=== PATIENT | female | born 1985 | race Caucasian/White ===

== ENCOUNTER 2017-10-13 05:47 | Inpatient (IN) ==
--- OUTSIDE RECORDS SUMMARY | 2017-10-13 05:43 | External Medical Summary | Continuity of Care Document ---
:1985 Author Organization [facility] Address [address] [place], [place] [id number] Phone Care Team Providers Name Role Phone Jessica Birch MD Unavailable Unavailable Allergies, Adverse Reactions, Alerts Substance Reaction Severity Status sulfamoxole Hives Unknown Active Medications Medication Instructions Dosage Effective Dates Status Comments (start - stop) Rhophylac 1,500 unit - Active (300 mcg)/2 mL injection syringe OneTouch Ultra Test insert 1 by Not Available - Active of choice strips Misc.(Non-Drug; Combo Route) route once fasting and postprandial blood-glucose meter check by Not Available - Active of choice kit Misc.(Non-Drug; Combo Route) route once test blood sugar QID, fasting and 2 hours after each meal levothyroxine 50 mcg take 1 tablet by 50 MCG - Active tablet oral route every day Flonase 50 spray 1 spray by - Active mcg/actuation nasal intranasal route spray,suspension every day in each nostril as needed fexofenadine 180 mg take 1 tablet by 180 MG - Active tablet oral route every day ORAL - Active TABLET Problems Condition Effective Dates (start - stop) Clinical Status Gestational diabetes mellitus in - , diet controlled Previous Low Transverse - 34 weeks gestation of - Hypothyroidism, unspecified 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) - (routine) w/o abn findings Pap Smear Screening, Cervix Encounter for initial prescription of contraceptive pills Personal history of gestational diabetes Personal history of gestational diabetes Endo, nutritional and metab diseases - comp preg, unsp tri Encntr screen for infections w sexl - mode of transmiss Encounter for screening for oth - infec/parastc diseases Encounter for suprvsn of normal - , first trimester Encounter for screening of - mother 9 weeks gestation of - Gestational diabetes mellitus in - , diet controlled 30 weeks gestation of - Previous Low Transverse - Endo, nutritional and metab diseases - comp preg, third tri 28 weeks gestation of - Previous Low Transverse - Encounter For Screening For - Streptococcus B 36 weeks gestation of - Endo, nutritional and metab diseases - comp preg, second tri Encounter For Screening For - Malformations 20 weeks gestation of - Endo, nutritional and metab diseases - comp preg, second tri Encounter for suprvsn of normal - , second trimester 17 weeks gestation of - Encounter for suprvsn of normal - , second trimester 14 weeks gestation of - Encounter for suprvsn of normal - , second trimester 24 weeks gestation of - Encounter for suprvsn of normal - , second trimester 20 weeks gestation of - Encounter for suprvsn of normal - , third trimester 32 weeks gestation of - Active Procedures Procedure Date OB Visit No Charge - 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 700 Provider: Health PA, C-SectionEncounte 8 Medical Katherine PO Box r For Center [facility], 700 1522, Screening For Leoncio Elizabeth, Streptococcus B36 120, Center Dr LYNCH, weeks gestation Astudillo, [facility] 120, [id number], of SYED Astudillo, [id number] SYED, tel: , [place]. [id number]. tel: tel:+ [phone] Lakshmi Astudillo Gestational Jason-1 Andres Referring In Womens diabetes mellitus 0-201 Lesly. Provider: John BRITO, in , 8 700 Katherine PO Box diet [facility], 700 1522, controlledPreviou [facility] Aries, s Low Transverse , [facility] Dr LYNCH, [id number] weeks 120, Leoncio 120, , gestation of Baudilio Astudillo, [place] SYED, SYED, tel:[phone]. , [place]. tel: tel: [phone] Lakshmi Astudillo Encounter for Dec-2 Mannie Referring In Womens suprvsn of normal 7-201 [place]. 700 Provider: John BRITO, , third 7 Medical Katherine PO Box [id number] weeks Center [facility], 700 1522, gestation of Leoncio Elizabeth, 120, Center Baudilio Deleon, [facility] 120, , SYED Baudilio, [id number] SYED, tel: , [place]. [id number]. tel: tel:+ [phone] Lakshmi Astudillo Gestational Dec-1 Mannie Referring In Womens diabetes mellitus 5-201 [place]. 700 Provider: John BRITO, in , 7 Medical Katherine PO Box diet [id number] [facility], 700 1522, weeks gestation Leoncio Elizabeth, of 120, Center Baudilio Deleon, [facility] 120, [id number], SYED Astudillo, [id number] SYED, tel: , [place]. [id number]. tel: tel:+ [phone] Lakshmi Astudillo Dec-0 Mannie In Womens 8-201 [place]. 700 Health PA, 7 Medical PO Box Center 1522, Leoncio Elizabeth, 120, Baudilio L[place]CH, [id number], [place], [place] [id number] tel: , [place]. tel: [phone] Lakshmi Astudillo Dec-0 Mannie In Womens 4-201 [place]. 700 Health DARYL, 7 Medical PO Box Center 1522, Leoncio Elizabeth, 120, SYED, [place], [id number], [place], [place] [id number] tel: , [place]. tel: [phone] Lakshmi Astudillo Previous Low Dec-0 Mannie Referring In Womens Transverse 1-201 [place]. 700 Provider: Health DARYL, C-SectionEndo, 7 Medical Katherine PO Box nutritional and Center [facility], [facility] 1522, metab diseases , Leoncio Chris, comp preg, third 120, Center Dr LYNCH, tri28 weeks Baudilio, [facility] 120, , gestation of Baudilio LYNCH, SYED, tel: , [place]. [id number] tel: tel: [phone] Lakshmi Astudillo Encounter for Nov-0 Mannie Referring In Womens suprvsn of normal 3-201 [place]. 700 Provider: John BRITO, , second 7 Medical Katherine PO Box [email or web address] weeks [facility], [facility] 1522, gestation of Leoncio Elizabeth, 120, Center Baudilio Deleon, [facility] 120, , Baudilio LYNCH, [place] [id number] SYED, tel: , [place]. [id number] tel: tel: [phone] Lakshmi Astudillo Encounter for Oct-0 Mannie Referring In Womens suprvsn of normal 4-201 [place]. 700 Provider: John BRITO, , second 7 Medical Katherine PO Box [id number] weeks [facility], [facility] 1522, gestation of Leoncio Elizabeth, 120, Center Baudilio Deleon, [facility] 120, , Baudilio L[place]CH, [place] [id number] SYED, tel: , [place]. [id number] tel: tel:[phone] Associates B[facility] Stout, nutritional Oct-0 Mannie Referring In Womens Ultrasound and metab 4-201 [place]. 700 Provider: Health PA, diseases comp 7 Medical Katherine PO Box preg, second Center [facility], 700 1522, triEncounter For Leoncio Elizabeth, 120, Center Dr LYNCH, Screening For Astudillo, Leoncio 120, [id number], [id number] Baudilio LYNCH, weeks gestation [id number] SYED, tel: of , [place]. [id number] tel: tel:[phone] [facility] Stout nutritional Sep-1 Mannie Referring In Womens and metab 4201 [place]. 700 Provider: Health DARYL, diseases comp 7 Medical Katherine PO Box preg, second [facility], 700 1522, triEncounter for Leoncio Elizabeth, suprvsn of normal 120, Center Dr LYNCH, , second Astudillo Leoncio 120, [id number], [id number] weeks Baudilio LYNCH, gestation of [id number] SYED, tel: , [place]. [id number]. tel: tel:[phone] Associates [facility] Encounter for Aug-2 Mannie Referring In Womens suprvsn of normal 4-201 [place]. 700 Provider: Health DARYL, , second 7 Medical Katherine PO Box [email or web address] weeks [facility], 700 1522, gestation of Leoncio Elizabeth, 120, Center Dr LYNCH, Baudilio, Leoncio 120, [id number], Baudilio [place], [place] [id number] [place], tel: , [place]. [id number] tel: tel:[phone] [facility] Stout, nutritional Ja-2 Mannie Referring In Womens and metab 7-201 [place]. 700 Provider: Health DARYL, diseases comp 7 Medical Katherine PO Box preg, unsp [facility], 700 1522, triEncntr screen Leoncio Elizabeth, for infections w 120, Center Dr LYNCH, sexl mode of Baudilio, Leoncio 120, [id number], transmissEncounte Baudilio LYNCH, r for screening [id number] [place], tel:2 for oth , [place]. [id number]. infec/parastc tel: tel:[phone] diseasesEncounter [phone] for suprvsn of normal , first trimesterEncounte r for screening of mother9 weeks gestation of [facility] Hypothyroidism, [place] Referring In Womens unspecifiedEncntr 3-201 [place]. Provider: Health DARYL, for medical assistant ob gyn exam 6 700 Katherine PO Box (general) Medical [place], 700 1522, (routine) w/o abn [place] Joel Chris, findingsPap Smear , [facility] Dr LYNCH, Screening, 120, Leoncio 120, , CervixEncounter Baudilio Astudillo, for initial [place], tel: prescription of [phone]. contraceptive , [place]. tel:[phone] pillsPersonal tel: [phone] history of [id number] gestational diabetesPersonal history of gestational diabetes [facility] Alexi Referring In Womens 3-201 [place]. Provider: John BRITO, 4 700 Dominique PO Box Medical [place] 1522, Center S, [address] Dr Aries, [facility] [place], 120, [place] [id number], [facility], [place] Baudilio LYN[place], tel:+ [phone] SYED, , [place]. [id number]. tel: tel:[phone] Lakshmi Astudillo Alexi Referring In Womens 3-201 Dominique. Provider: Health DARYL, 4 700 Dominique PO Box Medical [place] 1522, Center S, [address] Dr Aries, [facility] [place], 120, [place] [id number], [facility], [place] Baudilio LYNCH, tel:[phone] SYED, , [place]. [id number]. tel: tel:[phone] Lakshmi Astudillo [place] In Womens 8-200 Cynthia. Health DARYL, 8 700 PO Box Medical 1522, [place] Dr Aries, [facility], 120, [id number], [facility] [place], tel:[phone] , [place]. tel: [phone] Family History Family Member Diagnosis Age At Onset No family history of Colon Cancer No family history of Osteoporosis No family history of Ovarian Cancer No family history of Thyroid Disorder Paternal Grandmother Cancer, breast 82 No family history of Hypertension No family history of Cardiovascular Disease Maternal Grandmother Cancer, breast 75 No family history of Stroke Paternal Grandfather Diabetes mellitus Immunizations Vaccine Date Status Comments Tdap completed Source: New Immunization Record Rhophylac completed Source: New Immunization Record Influenza, injectable, completed Source: New Immunization Record quadrivalent, preservative free, 3 yrs or older Rhophylac completed Source: New Immunization Record Influenza, injectable, completed Source: New Immunization Record quadrivalent, preservative free, 3 yrs or older Payers Payer name Insurance type Covered republican ID Authorization(s) [facility] [id number] [facility] [id number] [facility] [id number] [facility] [id number] Social History Type Description Quantity Date Captured Alcohol Use Details No Caffeine Use Details Unknown Tobacco Use Status Unknown Smoking Status Never smoker Vital Signs Date / Height Weight BMI Pulse Blood Temperature Respiratory Body Head BMI Time: Rate Pressure Rate Surface Circumference percentile Area 135.80 35.3 123/ lbs 1 mm[Hg] 8:18 kg/m AM eter (2) Chief Complaint And Reason For Visit Unknown Chief Complaint And Reason For Visit Reason For Referral Reason For Referral Unknown Plan Of Care Date Type Action Status Appointment Eloy Kimball BOOKED Appointment Eloy Kimball - [facility] [place] Future Order: Lab Order Pap Smear With HPV Reflex If ASCUS Ordered ([id number]) Future Order: Radiology Order Complete OB Ultrasound > 14 Ordered Weeks ([id number]) Date Type Problem Goal Intervention Status Start Date Unknown. History Of Present Illness Encounter Date Complaint History Of Present Illness This patient has no known history of present illness Functional Status Encounter Date Functional Assessment Cognitive Assessment Unknown Medications Administered Medication Instructions Dosage Effective Dates (start - stop) Status Comments Drug Treatment Unknown Instructions Date Instruction Additional Information HIV and other routine tests risk factors identified by history anticipated course of care nutrition and weight gain counseling, special diet toxoplasmosis precautions (cats / raw meat) sexual activity exercise indications for ultrasound influenza vaccine environmental / work hazards travel use of any medications (including supplements, vitamins, herbs, OTC drugs) domestic violence seat belt use childbirth classes / hospital facilities hospital registration genetic testing Zika virus assessment & precautions
--- OUTSIDE RECORDS SUMMARY | 2017-10-13 05:43 | External Medical Summary | Continuity of Care Document ---
:1985 Author Organization [facility] Address [address] [place], [place] [id number] Phone Care Team Providers Name Role Phone Jessica Birch MD Unavailable Unavailable Allergies, Adverse Reactions, Alerts Substance Reaction Severity Status sulfamoxole Hives Unknown Active Medications Medication Instructions Dosage Effective Dates Status Comments (start - stop) levothyroxine 50 mcg take 1 tablet by 50 MCG - Active tablet oral route every day Flonase 50 spray 1 spray by Not Available - Active mcg/actuation nasal intranasal route spray,suspension every day in each nostril as needed fexofenadine 180 mg take 1 tablet by 180 MG - Active tablet oral route every day ORAL - Active TABLET Problems Condition Effective Dates (start - stop) Clinical Status Encounter for suprvsn of normal - , second trimester 20 weeks gestation of - Hypothyroidism, unspecified 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) w/o abn findings [...] - mother 9 weeks gestation of - Endo, nutritional and metab diseases - comp preg, second tri Encounter For Screening For - Malformations 20 weeks gestation of - Endo, nutritional and metab diseases - comp preg, second tri Encounter for suprvsn of normal - , second trimester 17 weeks gestation of - Encounter for suprvsn of normal - , second trimester 14 weeks gestation of - Active Procedures Procedure Date OB Visit No Charge Results Test Name Date and Time Measure Units Reference Range Abnormal Flag Comments Unknown Advance Directives Directive Yes / No Effective Date File Name Unknown Encounters Encounter Practice Location Reason(s) Diagnoses Date Provider Care Team Description For Visit Members Lakshmi Astudillo Encounter for Mannie Referring In Womens suprvsn of normal -201 [place]. 700 Provider: John BRITO, , second 7 Medical Katherine PO Box [id number] weeks [facility], 700 1522, gestation of Leoncio Elizabeth, 120, [place] Deleon, [facility] 120, , Baudilio LYNCH, [id number] SYED, tel: , [place]. [id number]. tel: tel: [phone] [facility] Stout, nutritional May-0 Mannie Referring In Womens Ultrasound and metab 4-201 [place]. 700 Provider: John BRITO diseases comp 7 Medical Katherine PO Box preg, second [place], 700 1522, triEncounter For Leoncio Elizabeth, [facility], [place] Dr LYNCH, Screening For Baudilio [facility] 120, , [id number] Baudilio LYNCH, weeks gestation [id number] SYED, tel: of , [place]. [id number]. tel: tel:[phone] [facility] Stout, nutritional May- Mannie Referring In Womens and metab 4-201 [place]. 700 Provider: John BRITO diseases comp 7 Medical Katherine PO Box preg, second [facility], 700 1522, triEncounter for Leoncio Elizabeth, [facility] of normal 120, [place] Dr LYNCH, , second Astudillo [facility] 120, [id number], [id number] weeks Baudilio LYNCH, gestation of [id number] SYED, tel: , [place]. [id number] tel: tel: [phone] [facility] Encounter for Mar-2 Mannie Referring In Womens suprvsn of normal 4-201 [place]. 700 Provider: Health PA, , second 7 Medical Katherine PO Box [id number] weeks Center [place], 700 1522, gestation of , [facility] Joel Chris, 120, Center Dr LYNCH, Baudilio, [facility] 120, , [place], [place], [place], tel: , [place]. [id number] tel: tel: [phone] [facility] Feb-2 Mannie In Womens 8-201 [place]. 700 Health PA, 7 Medical PO Box Center 1522, Leoncio Elizabeth, 120, Baudilio LYNCH, , [place], [place] tel: , [place]. tel: [phone] Lakshmi Astudillo Endo, nutritional Feb-2 Mannie Referring In Womens and metab 7-201 [place]. 700 Provider: Health DARYL, diseases comp 7 Medical Katherine PO Box preg, unsp [place], 700 1522, triEncntr screen , [facility] Aries, for infections w 120, Center Dr LYNCH, sexl mode of Astudillo, [facility] 120, , [facility] [place], tel: for oth , [place]. [id number] infec/parastc tel: tel:+[phone] diseasesEncounter [phone] for suprvsn of normal , first trimesterEncounte r for screening of mother9 weeks gestation of [facility] Hypothyroidism, [place] Referring In Womens unspecifiedEncntr 3-201 [place]. 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 contraceptive , [place]. tel: pillsPersonal tel: [phone] history of [id number] gestational diabetesPersonal history of gestational diabetes Associates Baudilio [facility] Referring In Womens 3-201 [place]. Provider: Health [place], 4 700 Dominique PO Box Medical [facility] 1522, [place] S, [address] Dr Aries, [facility] [place], 120, [place] [id number], Astudillo, [facility] 120, Baudilio LYNCH, tel: [phone] SYED , . [id number]. tel: tel: [phone] Lakshmi Astudillo [facility] Referring In Womens 3-201 [place]. Provider: Health [place], 4 700 Dominique PO Box Medical [facility] 1522, [facility], [facility] [address] Aries, [facility] [place], 120, [place] [id number], [facility] 120, Baudilio LYNCH, tel: [phone] SYED, , . [id number]. tel: tel: [phone] Lakshmi Astudillo Feb- East In Womens 8-200 Cynthia. Health [place], 8 700 Box Medical 1522, [place] [address] Aries, [facility] [place], 120, [id number], Astudillo, SYED, tel: [phone] , . tel: [phone] Family History Family Member Diagnosis Age At [...] Diabetes mellitus Immunizations Vaccine Date Status Comments Rhophyla completed Source: New Immunization Record Influenza, injectable, completed Source: New Immunization Record quadrivalent, preservative free, 3 yrs or older Payers Payer name Insurance type Covered republican ID Authorization(s) BCFAYE LYN[place] [id number] Social History Type Description Quantity Date Captured Alcohol Use Details No Caffeine Use Details Unknown Tobacco Use Status Unknown Smoking Status Never smoker Vital Signs Date / Height Weight BMI Pulse Blood Temperature Respiratory Body Head BMI Time: Rate Pressure Rate Surface Circumference percentile Area Unknown Chief Complaint And Reason For Visit Unknown Chief Complaint And Reason For Visit Reason For Referral Reason For Referral Unknown Plan Of Care Date Type Action Status Appointment Eloy Kimball BOOKED Future Order: Lab Order Pap Smear With HPV Reflex If ASCUS Ordered ([id number]) Future Order: Radiology Order Complete OB Ultrasound > 14 Ordered Weeks ([id number]) Date Type Problem Goal Intervention Status Start [...]
--- OUTSIDE RECORDS SUMMARY | 2017-10-13 05:43 | External Medical Summary | Continuity of Care Document ---
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 [...] - mother 9 weeks gestation of - Previous Low Transverse - Endo, nutritional and metab diseases - comp preg, third tri 28 weeks gestation of - Endo, nutritional and [...] gestation of - Active Procedures Procedure Date Injection Administration Rhophylac 100 Units OB Visit No Charge Results Test Name Date and Time Measure Units Reference Range Abnormal Flag Comments Unknown Advance Directives Directive Yes / No Effective Date File Name Unknown Encounters Encounter Practice Location Reason(s) Diagnoses Date Provider Care Team Description For Visit Members [facility] Encounter for Mannie Referring In Womens suprvsn of normal 7-201 [place]. 700 Provider: Health PA, , third 7 Medical Katherine [address] [id number] weeks [place], [facility] 1522, gestation of Leoncio Elizabeth [place], 120, Center Baudilio Deleon, [facility] 120, [id number], Baudilio LYNCH, [id number] SYED, tel:+2 , . [phone]. [id number] tel: tel: [phone] [facility] Gestational Dec-1 Mannie Referring In Womens diabetes mellitus 5-201 [place]. 700 Provider: Health DARYL, in , 7 Medical Katherine PO Box diet [id number] Center [facility], [facility] 1522, weeks gestation Leoncio Elizabeth, of 120, Center Dr LYNCH, Baud[place], [facility] 120, [id number], SYED, [place] [id number] [place], tel: , [place]. [id number]. tel: tel:[phone] [facility] Dec-0 Mannie In Womens 8-201 [place]. 700 John BRITO, 7 Medical PO Box Center 1522, Leoncio Elizabeth, 120, SYED, [place], [id number], [place], [place] [id number] tel:+ , [place]. tel: [phone] [facility] Dec-0 Mannie In Womens 4-201 [place]. 700 John BRITO, 7 Medical PO Box Center 1522, Leoncio Elizabeth, 120, SYED, [place], [id number], [place] [id number] tel: , [place]. tel: [phone] Lakshmi [place] Previous Low Dec-0 Mannie Referring In Womens Transverse 1-201 [place]. 700 Provider: John BRITO, C-SectionEndo, 7 Medical Katherine PO Box nutritional and Center [facility], 700 1522, metab diseases Leoncio Elizabeth, comp preg, third 120, Center Dr LYNCH, tri28 weeks [place], [facility] 120, [id number], gestation of Baud[place] LYNCH, [place] [id number] SYED, tel: , [place]. [id number]. tel: tel: [phone] Lakshmi [place] Encounter for Nov-0 Mannie Referring In Womens suprvsn of normal 3-201 [place]. 700 Provider: John BRITO, , second 7 Medical Katherine PO Box [id number] [facility] 1522, gestation of Leoncio Elizabeth, 120, Center Baudilio Deleon, [facility] 120, [id number], SYED, [place] [id number] [place], tel: , [place]. [id number]. tel: tel: [phone] Lakshmi [place] Encounter for Oct-0 Mannie Referring In Womens suprvsn of normal 4-201 [place]. 700 Provider: Health DARYL, , second 7 Medical Katherine PO Box [id number] weeks [place], 700 1522, gestation of Leoncio Elizabeth, 120, Center Dr LYNCH, [place], [facility] 120, , SYED, [place] [id number] [place], tel: , [place]. [id number]. tel: tel:[phone] [facility] Stout, nutritional Oct-0 Mannie Referring In Womens Ultrasound and metab 4-201 [place]. 700 Provider: John BRITO, diseases comp 7 Medical Katherine PO Box preg, second [place], 700 1522, triEncounter For Leoncio Elizabeth, 120, Center Dr LYNCH, Screening For Baudilio, [facility] 120, [id number], [id number] Baudilio LYNCH, weeks gestation SYED, tel: of , [place]. [id number]. tel: tel: [phone] [facility] Stout, nutritional Sep-1 Mannie Referring In Womens and metab 4-201 [place]. 700 Provider: John BRITO, diseases comp 7 Medical Katherine PO Box preg, second [place], 700 1522, triEncounter for Leoncio Elizabeth, suprvsn of normal 120, Center Dr LYNCH, , second [place]aud[place], [facility] 120, [id number], [email or web address] weeks Baudilio LYNCH, [place] gestation of [id number] SYED, tel: , [place]. [id number]. tel: tel:[phone] Lakshmi [place] Encounter for Aug-2 Mannie Referring In Womens suprvsn of normal 4-201 [place]. 700 Provider: John BRITO, , second 7 Medical Katherine PO Box [id number] [facility]22, gestation of Leoncio Elizabeth, 120, Center Dr LYNCH, B[place], Leoncio 120, , B[place] LYNCH, [place], tel: , [place]. [id number]. tel: tel:+ [phone] [facility] Endo, nutritional Feb- Mannie Referring In Womens and metab 7- [place]. 700 Provider: Health DARYL, diseases comp 7 Medical Katherine PO Box preg, unsp [place], 700 1522, triEncntr screen , [facility], for infections w 120, [place] Dr LYNCH, sexl mode of [place], Leoncio 120, , transmissEncounte Baudilio LYNCH, r for screening [place], tel: for oth , [place]. [id number]. infec/parastc tel: tel:+ diseasesEncounter [phone] for suprvsn of normal , first trimesterEncounte r for screening of mother9 weeks gestation of [facility] Hypothyroidism, [place] Referring In Womens unspecifiedEncntr -201 [place]. Provider: John BRITO, for painter supervisor exam 6 700 Katherine PO Box (general) [facility], 700 1522, (routine) w/o abn [facility] [place], findingsPap Smear , [facility] Dr LYNCH, Screening, 120, Leoncio 120, , CervixEncounter Baudilio [place], for initial SYED LYNCH, tel: prescription of [phone]. contraceptive , [place]. tel:+[phone] pillsPersonal tel: [phone] history of [id number] gestational diabetesPersonal history of gestational diabetes [facility] Alexi Referring In Womens 3-201 [place]. Provider: Health DARYL, 4 700 Dominique PO Box Medical Alexi 1522, Center S, [address] Dr Aries, [facility], 120, [place] [id number], [place], [facility] 120, [place] Baudilio LYNCH, tel:[phone] SYED, , [place]. [id number]. tel: tel:+ [phone] Lakshmi [place] May- [place] Referring In Womens 3-201 [place]. Provider: Health PA, 4 700 Dominique PO Box Medical [place] 1522, Center S, [address] Dr Aries, [facility], 120, [place] [id number], [facility], SYED, [place], tel: [phone] [place], , [place]. [id number]. tel: tel: [phone] Lakshmi [place] Feb- East In Womens 8-200 Cynthia. Health PA, 8 700 PO Box Medical 1522, Center Dr Aries, [facility] [place], 120, [id number], [place], [facility], tel: [phone] , [place]. tel: [phone] Family History Family Member Diagnosis Age At [...] Diabetes mellitus Immunizations Vaccine Date Status Comments Rhophylac completed Source: New Immunization Record Influenza, injectable, completed Source: New Immunization Record quadrivalent, preservative free, 3 yrs or older Rhophylac completed Source: New Immunization Record Influenza, injectable, completed Source: New Immunization Record quadrivalent, preservative free, 3 yrs or older Payers Payer name Insurance type Covered alliance party ID Authorization(s) [facility] [id number] [facility] [id number] [facility] [id number] Social History Type Description Quantity Date Captured Alcohol Use Details No Caffeine Use Details Unknown Tobacco Use Status Unknown Smoking Status Never smoker Vital Signs Date / Height Weight BMI Pulse Blood Temperature Respiratory Body Head BMI Time: Rate Pressure Rate Surface Circumference percentile Area 132.70 34.5 127/82 -2017 lbs 0 mm[Hg] 3:36 kg/m PM eter (2) Chief Complaint And Reason For Visit Unknown Chief Complaint And Reason For Visit Reason For Referral Reason For Referral Unknown Plan Of Care Date Type Action Status Appointment Eloy Kimball BOOKED Appointment Eloy Kimball - [facility] BOOK[facility] Future Order: Lab Order Pap Smear With HPV Reflex If ASCUS Ordered ([id number]) Future Order: Radiology Order Complete OB Ultrasound > 14 Ordered Weeks (22212) Date Type Problem Goal Intervention Status Start [...]
--- OUTSIDE RECORDS SUMMARY | 2017-10-13 05:43 | External Medical Summary | Continuity of Care Document ---
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 700 Provider: John BRITO, , second 7 Medical Katherine PO Box [email or web address] weeks [place], 700 1522, gestation of Leoncio Elizabeth, 120, [address] LYNCH, [place], [facility] 120, , SYED, [place], [id number] [place], tel: , [place]. [id number]. tel: tel: [phone] [facility] Feb- Mannie In Womens [place]. 700 John BRITO, 7 Medical PO Box Center 1522, Leoncio Elizabeth, 120, Baudilio LYNCH, , [place], [id number] tel: , [place]. tel: [phone] [facility] Endo, nutritional Feb- Mannie Referring In Womens and metab diseases [place]. 700 Provider: John BRITO, comp preg, unsp 7 Medical Katherine PO Box triEncntr screen [facility], 700 1522, for infections w , [facility] Joel Chris, sexl mode of 120, [address] Dr LYNCH, transmissEncounter Baudilio, [facility] 120, , for screening for SYED, [place], [facility] infec/parastc [id number] SYED, tel: diseasesEncounter , [place]. [id number]. for suprvsn of tel: tel: normal , [phone] first trimesterEncounter for screening of mother9 weeks gestation of [facility] Hypothyroidism, [place] Referring In Womens unspecifiedEncntr [place]. 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 Dr LYNCH, CervixEncounter for 120, Leoncio 120, , initial B[place], prescription of [place], SYED, tel: contraceptive [phone]. [facility] , . tel: history of tel: [phone] gestational [phone] diabetesPersonal history of gestational diabetes [facility] Referring In Womens 3-201 [place]. Provider: Health [place], 4 700 Dominique PO Box Medical [facility] 1522, [facility], [facility] Dr Aries, [facility], 120, Mcdaniel [id number], [facility], Baudilio LYNCH, tel: [phone] SYED, , . [id number]. tel: tel: [phone] Lakshmi [place] [facility] Referring In Womens 3-201 [place]. Provider: Health DARYL, 4 700 Dominique PO Box Medical [facility] 1522, [facility], [facility] Dr Aries, [facility], 120, Mcdaniel [id number], [facility] 120, Baudilio LYNCH, tel: [phone] SYED, , . [id number]. tel: tel: [phone] [facility] Feb- East In Womens 8-200 Cynthia. Health PA, 8 700 PO Box Medical 1522, [address] Aries, [facility] [place], 120, [id number], [place], [place], tel: [phone] , . tel: [phone] Family History Family Member Diagnosis Age At [...] older Payers Payer name Insurance type Covered libertarian ID Authorization(s) [facility] [id number] Social History Type Description Quantity Date Captured Alcohol Use Details No Caffeine Use Details Unknown Tobacco Use Status Unknown Smoking Status Never smoker Vital Signs Date / Height Weight BMI Pulse Blood Temperature Respiratory Body Head BMI Time: Rate Pressure Rate Surface Circumference percentile Area 116.20 30.2 126/82 -2017 lbs 1 mm[Hg] 8:31 kg/m AM eter (2) Chief Complaint And Reason For Visit Unknown Chief Complaint And Reason For Visit Reason For Referral Reason For Referral Unknown Plan Of Care Date Type Action Status Appointment Eloy Kimball BOOKED Future Order: Lab Order Pap Smear With HPV Reflex If ASCUS Ordered ([id number]) Date Type Problem Goal Intervention Status Start [...]
--- OUTSIDE RECORDS SUMMARY | 2017-10-13 05:43 | External Medical Summary | Continuity of Care Document ---
:1985 Author Organization [facility] [facility] Address [address] [place], [place] [phone] Phone Care Team Providers Name Role Phone Jessica Birch MD Unavailable Unavailable Allergies, Adverse Reactions, Alerts Substance Reaction Severity Status sulfamoxole Hives Unknown Active Medications Medication Instructions Dosage Effective Status Comments Dates (start - stop) Rhophylac 1,500 - Active unit (300 mcg)/2 mL injection syringe OneTouch Ultra insert 1 by Not Available - Active of choice Test strips Misc.(Non-Drug; Combo Route) route once fasting and postprandial blood-glucose check by Not Available - Active of choice meter kit Misc.(Non-Drug; Combo Route) route once test blood sugar QID, fasting and 2 hours after each meal levothyroxine 50 take 1 tablet by 50 MCG - Active mcg tablet oral route every December- day Flonase 50 spray 1 spray by Not Available - Active mcg/actuation intranasal route nasal every day in each spray,suspension nostril as needed fexofenadine 180 take 1 tablet by 180 MG - Active mg tablet oral route every day ORAL - Active TABLET OneTouch Ultra insert 1 by Not Available - No Longer please Test strips Misc.(Non-Drug; Active confirm Combo Route) OneTouch route once Meter Type fasting and (?Ultra, postprandial Verio?, etc) Problems Condition Effective Dates (start - stop) Clinical Status Hypothyroidism, unspecified 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 700 Provider: John BRITO, in , 7 Medical Katherine PO Box diet [id number] [place] [address], [facility] 1522, weeks gestation Leoncio Elizabeth [facility], of 120, Center Baudilio Deleon, [facility] 120, [id number], Baudilio LYNCH, [id number] SYED, tel:+[phone] , [place]. [id number]. [id number] tel: tel: [phone] [facility] Dec-0 Mannie In Womens 8-201 [place]. 700 Health DARYL, 7 Medical PO Box Center 1522, Leoncio Elizabeth, 120, SYED, [place], [id number], [place], [place] [id number] tel: , [place]. tel: [phone] Lakshmi [place] Dec-0 Mannie In Womens 4-201 [place]. 700 Health DARYL, 7 Medical PO Box Center 1522, Leoncio Elizabeth, 120, SYED, [place], [id number], [place], [place] [id number] tel: , [place]. tel: [phone] Lakshmi [place] Previous Low Dec-0 Mannie Referring In Womens Transverse 1-201 [place]. 700 Provider: John BRITO, C-SectionEndo, 7 Medical Katherine PO Box nutritional and Center [facility], 700 1522, metab diseases , Leoncio Chris, comp preg, third 120, Center Dr LYNCH, tri28 weeks [place], [facility] 120, , gestation of Baudilio LYNCH, [id number] SYED, tel: , [place]. [id number] tel: tel: [phone] Lakshmi [place] Encounter for Nov-0 Mannie Referring In Womens suprvsn of normal 3-201 [place]. 700 Provider: Health DARYL, , second 7 Medical Katherine PO Box [id number] [facility], [facility] 1522, gestation of Leoncio Elizabeth, 120, Center Dr LYNCH, [place], [facility] 120, [id number], SYED, [place] [id number] [place], tel: , [place]. [id number] tel: tel: [phone] Lakshmi [place] Encounter for Oct-0 Mannie Referring In Womens suprvsn of normal 4-201 [place]. 700 Provider: Health DARYL, , second 7 Medical Katherine PO Box [id number] weeks [facility], 700 1522, gestation of Leoncio Elizabeth, 120, Center Dr LYNCH, [place], [facility] 120, , Baudilio LYNCH, [place], tel: , [place]. [id number]. tel: tel: [phone] [facility] Stout, nutritional Oct-0 Mannie Referring In Womens Ultrasound and metab 4-201 [place]. 700 Provider: Health DARYL, diseases comp 7 Medical Katherine PO Box preg, second Center [facility], 700 1522, triEncounter For , Leoncio Chris, 120, Center Dr LYNCH, Screening For [place], Leoncio 120, [id number], [id number] Baudilio LYNCH, weeks gestation [id number] SYED, tel: of , [place]. [id number]. tel: tel: [phone] [facility] Stout, nutritional Sep-1 Mannie Referring In Womens and metab 4-201 [place]. 700 Provider: Health DARYL, diseases comp 7 Medical Katherine PO Box preg, second [facility], 700 1522, triEncounter for , Leoncio Chris, suprvsn of normal 120, Center Dr LYNCH, , second [place], [facility] 120, [id number], [email or web address] weeks Baudilio LYNCH, [place] gestation of [id number] SYED, tel: , [place]. [id number]. tel: tel: [phone] Lakshmi [place] Encounter for Aug-2 Mannie Referring In Womens suprvsn of normal 4-201 [place]. 700 Provider: Health DARYL, , second 7 Medical Katherine PO Box [id number] weeks [facility], 700 1522, gestation of Leoncio Elizabeth, 120, Center Dr LYNCH, Baudilio, [facility] 120, [id number], Baudilio LYNCH, [place], tel: , [place]. [id number]. tel: tel:[phone] Lakshmi Stout, nutritional Aj-2 Mannie Referring In Womens and metab 7-201 [place]. 700 Provider: Health DARYL, diseases comp 7 Medical Katherine PO Box preg, unsp [facility], 700 1522, triEncntr screen , [facility], for [facility] w 120, [place] [address] LYNCH, sexl mode of [place], Leoncio 120, , transmissEncounte Baudilio LYNCH, r for screening [id number] [place], tel: for oth , [place]. [id number]. infec/parastc tel: tel:+316 diseasesEncounter [phone] for suprvsn of normal , first trimesterEncounte r for screening of mother9 weeks gestation of [facility] Hypothyroidism, [place] Referring In Womens unspecifiedEncntr 3- Katherine. 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 contraceptive , [place]. tel: pillsPersonal tel: [phone] history of [id number] gestational diabetesPersonal history of gestational diabetes [facility] Alexi Referring In Womens 3-201 [place]. Provider: Health DARYL, 4 700 Dominique PO Box [facility], Center S, [address] Dr Aries, [facility], 120, [place] [id number] [facility] 120, [place] Baudilio LYNCH, tel: [phone] SYED , [place]. [id number]. tel: tel:[phone] Lakshmi [place] Alexi Referring In Womens 3-201 [place]. Provider: Health DARYL, 4 700 Dominique PO Box Medical [facility] 1522, Center S, [address] Dr Aries, [facility], 120, Center [id number] [facility] 120, [place] Baudilio LYNCH, tel: [phone] SYED, , [place]. [id number]. tel: tel:+[phone] Lakshmi [place] In Womens 8-200 [facility] [place], 8 700 PO [facility] 1522, [address] Aries, [facility], 120, [id number], [place], [facility], tel:[phone] , [place]. tel: [phone] Family History Family Member Diagnosis Age At [...] name Insurance type Covered libertarian ID Authorization(s) [facility] [id number] [facility] [id number] [facility] [id number] Social History Type Description Quantity Date Captured Unknown Vital Signs Date / Height Weight BMI [...] Complete OB Ultrasound > 14 Ordered Weeks (21679) Date Type Problem Goal Intervention Status Start [...]
--- OUTSIDE RECORDS SUMMARY | 2017-10-13 05:43 | External Medical Summary | Continuity of Care Document ---
:1983 Author Organization [facility] [employer] 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 700 Provider: John BRITO, , second 7 Medical Katherine PO Box [id number] weeks [facility], [facility] 1522, gestation of Leoncio Elizabeth, 120, [facility], , Baudilio LYNCH, [id number] SYED, tel: , [place]. [id number]. tel: tel:+ [phone] [facility] Stout nutritional May-0 Mannie Referring In Womens Ultrasound and metab 4-201 [place]. 700 Provider: John BRITO diseases comp 7 Medical Katherine PO Box preg, second [facility], 700 1522, triEncounter For Leoncio Elizabeth, 120, Lund Dr LYNCH, Screening For Baudilio [facility] 120, , [id number] Baudilio LYNCH, weeks gestation [id number] SYED, tel: of , [place]. [id number]. tel: tel:[phone] [facility] Stout nutritional May-1 Mannie Referring In Womens and metab 4-201 [place]. 700 Provider: John BRITO diseases comp 7 Medical Katherine PO Box preg, second [facility], 700 1522, triEncounter for Dr [facility] Joel Chris, [facility] normal 120, Lund Dr LYNCH, , second [place] [facility] 120, [id number], [id number] weeks Baudilio LYNCH, gestation of [id number] SYED, tel: , [place]. [id number] tel: tel:+ [phone] [facility] Encounter for Mar- Mannie Referring In Womens suprvsn of normal 4-201 [place]. 700 Provider: Health PA, , second 7 Medical Katherine PO Box [id number] [facility]22, gestation of Dr [facility] Joel Chris, 120, Center Dr LYNCH, Baudilio, [facility] 120, [id number], [place], [place], [place], tel: , [place]. [id number] tel: tel: [phone] [facility] Feb-2 Mannie In Womens 8-201 [place]. 700 Health PA, Medical PO Box [place] 1522, Leoncio Elizabeth, 120, Baudilio LYNCH, [id number], [place], [place] tel: , [place]. tel: [phone] [facility] Endo, nutritional Feb-2 Mannie Referring In Womens and metab 7-201 [place]. 700 Provider: Health DARYL, diseases comp 7 Medical Katherine PO Box preg, unsp [facility], 700 1522, triEncntr screen , [facility] Aries, for infections w 120, Lund Dr LYNCH, sexl mode of [place], [facility] 120, [id number], transmissEncounte [facility] for screening [place], tel: for oth , [place]. [id number] infec/parastc tel: tel:+[phone] diseasesEncounter [phone] for suprvsn of normal , first trimesterEncounte r for screening of mother9 weeks gestation of Associates [facility] Hypothyroidism, [place] Referring In Womens unspecifiedEncntr 3-201 Katherine. Provider: Health DARYL, for fur dyer exam 6 700 Katherine PO Box (general) [facility], 700 1522, (routine) w/o abn [place] Joel Chris, findingsPap Smear , [facility] Dr LYNCH, Screening, 120, Leoncio 120, [id number], CervixEncounter Baudilio [place], for initial SYED LYNCH, tel: prescription of [phone]. contraceptive , [place]. tel: pillsPersonal tel: [phone] history of [id number] gestational diabetesPersonal history of gestational diabetes Associates [facility] [place] Referring In Womens 3-201 Dominique. Provider: [facility], 4 700 Dominique PO Box Medical [facility] [place] 1522, Lund S, 700 Dr Aries, [facility], 120, Lund [id number], [place], [facility] 120, Baudilio LYNCH, tel: [phone] SYED, , . [id number]. tel: tel: [phone] Lakshmi A[place] [facility] [place] Referring In Womens 3-201 Dominique. Provider: [facility], 4 700 Dominique PO Box Medical [facility] [place] 1522, [facility], [facility] Dr Aries, [facility], 120, Lund [id number], [place], [place] [address], Baudilio LYNCH, tel: [phone] SYED, , . [id number]. tel: tel: [phone] Lakshmi [place] Feb- East In Womens 8-200 Cynthia. Health [place], 8 700 PO Box Medical 1522, Lund Dr Aries, [facility], 120, [id number], [place], SYED, tel: [phone] , . tel: [phone] Family History Family Member Diagnosis Age At [...] name Insurance type Covered libertarian ID Authorization(s) BCFAYE [place] BL [id number] Social History Type Description Quantity Date Captured [...] Status Appointment Eloy Kimball BOOKED Future Order: Radiology Order Complete OB Ultrasound > 14 Ordered Weeks ([id number]) Future Order: Lab Order Pap Smear With [...]
--- OUTSIDE RECORDS SUMMARY | 2017-10-13 05:43 | External Medical Summary | Continuity of Care Document ---
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) - (routine) w/o abn findings [...] - Malformations 20 weeks gestation of - Encounter for suprvsn of normal - , second trimester 14 weeks gestation of - Active Procedures Procedure Date OB Visit No Charge TSH Venpnctr fngr/heel/ear stick routne Results Test Name Date and Time Measure Units Reference Range Abnormal Flag Comments Panel Description: Thyrotropin [Units/volume] in Serum or Plasma TSH 09:00:00 2.17 mIU/L N Reference Range > or=20 Years 0.40-4.50 Ranges First trimester 0.26-2.66 Second trimester 0.55-2.73 Third trimester 0.43-2.91REPORT COMMENT:FASTING:NOTest performed at [facility] [id number] [place] [address]Cwnoxyqj: REYES CHOW DO,MPH Advance Directives Directive Yes / No Effective Date File Name Unknown Encounters Encounter Practice Location Reason(s) Diagnoses Date Provider Care Team Description For Visit Members Associates mariajose Cohen May- Mannie Referring In Womens Ultrasound and metab [address]. 700 Provider: John BRITO diseases comp 7 Medical Katherine PO Box preg, second [place], 700 1522, triEncounter For Leoncio Elizabeth, 120, Center Dr LYNCH, Screening For Leoncio [place] 120, , [id number] Baudilio LYNCH, weeks gestation [id number] SYED, tel: of , [place]. [id number]. [id number] tel: tel: [phone] Associates mariajose Cohen May- Mannie Referring In Womens and metab [address]. 700 Provider: John BRITO diseases comp 7 Medical Katherine PO Box preg, second Center [place], 700 1522, triEncounter for Leoncio Elizabeth, suprnata of normal 120, Center Dr LYNCH, , second [place] [facility] 120, [id number], [id number] weeks Baudilio LYNCH, gestation of [id number] SYED, tel: , [place]. [id number]. tel: tel: [phone] [facility] Encounter for Aug-2 Mannie Referring In Womens suprvsn of normal [place]. 700 Provider: Health DARYL, , second 7 Medical Katherine PO Box [id number] weeks Center [place], 700 1522, gestation of Dr, [facility] Joel Chris, 120, Center Dr LYNCH, Baudilio, Leoncio 120, , [place], [place], [id number] [place], tel: , [place]. [id number]. tel: tel: [phone] [facility] Feb-2 Mannie In Womens 8-201 [place]. 700 Health DARYL, 7 Medical PO Box Center 1522, Leoncio Elizabeth, 120, Baudilio LYNCH, , [place], [place] [id number] tel: , [place]. tel: [phone] [facility] Endo, nutritional Feb-2 Mannie Referring In Womens and metab 7- [place]. 700 Provider: Health DARYL, diseases comp 7 Medical Katherine PO Box preg, unsp [place], 700 1522, triEncntr screen , [facility] Aries, for infections w 120, Center Dr LYNCH, sexl mode of [place], Leoncio 120, , transmissEncounte SYED, [place], r for screening [place], tel: for oth , [place]. [id number] infec/parastc tel: tel: diseasesEncounter [phone] for suprvsn of normal , first trimesterEncounte r for screening of mother9 weeks gestation of [facility] Hypothyroidism, [place] Referring In Womens unspecifiedEncntr 3-201 Katherine. Provider: Health DARYL, for floorworker distributor exam 6 700 Katherine PO Box (general) Medical [place], 700 1522, (routine) w/o abn [place] Joel Chris, findingsPap Smear , [facility] Dr LYNCH, Screening, 120, Leoncio 120, , CervixEncounter Baudilio [place], for initial [place], [place], tel: prescription of [phone]. [facility] , [place]. tel: pillsPersonal tel: [phone] history of [id number] gestational diabetesPersonal history of gestational diabetes Associates [facility] Referring In Womens 3-201 Dominique. Provider: Health [place], 4 700 [facility] Box Medical [facility] 1522, [place] S, 700 Dr Aries, [facility], 120, [place] [id number], [facility] 120, Baudilio LYNCH, tel: [phone] [place], , . [id number]. tel: tel: [phone] Lakshmi [place] [facility] Referring In Womens 3-201 Dominique. Provider: Health [place], 4 700 [facility] Box Medical [facility] 1522, [facility], [address] Dr Aries, [facility], 120, [place] [id number], [facility] 120, Baudilio LYNCH, tel: [phone] [place], [address] , [place]. [id number]. tel: tel: [phone] Lakshmi [place] Feb- East In Womens 8-200 Cynthia. Health [place], 8 700 [facility] 1522, [place] Dr Aries, [facility] [place], 120, [id number], [place], [place], tel: [phone] , . tel: [phone] Family History Family Member Diagnosis Age At [...] older Payers Payer name Insurance type Covered democrat ID Authorization(s) FAYE FISCHER [id number] Social History Type Description Quantity Date Captured Alcohol Use Details No Caffeine Use Details Unknown Tobacco Use Status Unknown Smoking Status Never smoker Vital Signs Date / Height Weight BMI Pulse Blood Temperature Respiratory Body Head BMI Time: Rate Pressure Rate Surface Circumference percentile Area 118.40 30.7 / lbs 8 mm[Hg] 8:47 kg/m AM eter (2) 30.2 128 1 mm[Hg] 8:47 kg/m AM eter (2) Chief Complaint And Reason For Visit Unknown Chief Complaint And Reason For Visit Reason For Referral Reason For Referral Unknown Plan Of Care Date Type Action Status Appointment Eloy Kimball BOOKED Future Order: Lab Order Pap Smear With HPV Reflex If ASCUS Ordered ([id number]) Future Order: Radiology Order Complete OB Ultrasound > 14 Ordered Weeks ([id number]) Date Type Problem Goal Intervention Status Start [...]
--- OUTSIDE RECORDS SUMMARY | 2017-10-13 05:43 | External Medical Summary | Continuity of Care Document ---
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) - (routine) w/o abn findings [...] diet controlled 30 weeks gestation of - Endo, nutritional and [...] Procedures Procedure Date OB Visit No Charge Antibody Screen, RBC Glucose test Hemoglobin count, colorimetric Hematocrit blood count TSH Venpnctr fngr/heel/ear stick routne Results Test Name Date and Time Measure Units Reference Range Abnormal Flag Comments Panel Description: Glucose [Mass/volume] in Serum or Plasma --1 hour post 50 g glucose PO GLUCOSE, 178 mg/dL <140 H One hour value of > GESTATIONAL SCREEN 15:20:00 gd=567 mg/dL indicatesthe (50G)-140 CUTOFF need for a diagnostic 75 g dose 2-hour or100 g dose 3-hour oral glucose tolerance test;patient fasting is required.Test performed at [facility] [id number] [place] [address]Kuyytqnt: REYES CHOW DO,MPH Panel Description: HEMOGLOBIN + HEMATOCRIT HEMOGLOBIN 15:20:00 11.5 g/dL 11.7-15.5 L HEMATOCRIT 15:20:00 33.9 % 35.0-45.0 L Test performed at [facility] [place] [id number]: REYES CHOW DO,MPH Panel Description: Thyrotropin [Units/volume] in Serum or Plasma TSH 15:20:00 1.58 mIU/L N Reference Range > or=20 Years 0.40-4.50 Ranges First trimester 0.26-2.66 Second trimester 0.55-2.73 Third trimester 0.43-2.91Test performed at [facility] [place] [address]Director: REYES CHOW DO,MPH Panel Description: ANTIBODY SCREEN, RBC W/REFL ID, TITER AND AG ANTIBODY NO ANTIBODIES N Reference SCREEN, RBC 15:20:00 DETECTED range No W/REFL ID, antibodies detected This TITER AND AG assay is a screening test for the detection of red blood cell antibodies. The test is not to be used for pretransfusion screening or for the medical management of an alloimmunized . REPORT COMMENT:FASTING:NOTest performed at [facility] [place] [address]Director: REYES CHOW DO,MPH Advance Directives Directive Yes / No Effective Date File Name Unknown Encounters Encounter Practice Location Reason(s) Diagnoses Date Provider Care Team Description For Visit Members Lakshmi [place] Gestational Dec-1 Mannie Referring In Womens diabetes mellitus 5-201 [place] [address] Provider: Health PA, in , 7 Medical Katherine PO Box diet [id number] [facility], 700 1522, weeks gestation Leoncio Elizabeth [facility], of 120, Center Baudilio [address], [id number], Baudilio LYNCH, [id number] SYED, tel: , [place]. [phone]. [id number] tel: tel: [phone] Lakshmi [place]illo Dec-0 Mannie In Womens 8-201 [place]. 700 Health PA, 7 Medical PO Box Center 1522, Leoncio Elizabeth, 120, SYED, [place], [id number], [place], [place] [id number] tel: , [place]. tel: [phone] Lakshmi Astudillo Dec-0 Mannie In Womens 4-201 [place]. 700 Health PA, 7 Medical PO Box Center 1522, Leoncio Elizabeth, 120, SYED, [place], [id number], [place], [place] [id number] tel: , [place]. tel: [phone] Lakshmi [place] Previous Low Dec-0 Mannie Referring In Womens Transverse 1-201 [place]. 700 Provider: Health DARYL, C-SectionEndo, 7 Medical Katherine PO Box nutritional and Center [facility], [facility] 1522, metab diseases , Leoncio Chris, comp preg, third 120, Center Dr LYNCH, tri28 weeks [place], [facility] 120, [id number], gestation of Baudilio LYNCH, SYED, tel: , [place]. [id number]. tel: tel: [phone] Lakshmi [place] Encounter for Nov-0 Mannie Referring In Womens suprvsn of normal 3-201 [place]. 700 Provider: Health DARYL, , second 7 Medical Katherine PO Box [id number] weeks [facility], [facility] 1522, gestation of Leoncio Elizabeth, 120, Center Baudilio Deleon, [facility] 120, [id number], Baudilio LYNCH, [place] [id number] SYED, tel: , [place]. [id number] tel: tel: [phone] Lakshmi [place] Encounter for Oct-0 Mannie Referring In Womens suprvsn of normal 4-201 [place]. 700 Provider: Health DARYL, , second 7 Medical Katherine PO Box [id number] weeks [facility], [facility] 1522, gestation of Leoncio Elizabeth, 120, Center Baudilio Deleon, Leoncio 120, [id number], SYED, [place], [place] [id number] SYED, tel: , [place]. [id number]. tel: tel:[phone] [facility] Stout, nutritional Oct-0 Mannie Referring In Womens Ultrasound and metab 4-201 [place]. 700 Provider: Health DARYL, diseases comp 7 Medical Katherine PO Box preg, second Center [facility], 700 1522, triEncounter For Leoncio Elizabeth, 120, Center Dr LYNCH, Screening For Baudilio, Leoncio 120, [id number], [id number] Baudilio LYNCH, weeks gestation [id number] SYED, tel: of , [place]. [id number]. tel: tel:[phone] [facility] Stout, nutritional Sep-1 Mannie Referring In Womens and metab 4-201 [place]. 700 Provider: Health DARYL diseases comp 7 Medical Katherine PO Box preg, second [facility], 700 1522, triEncounter for Leoncio Elizabeth, suprvsn of normal 120, Center Dr LYNCH, , second [place], [facility] 120, [id number], [id number] weeks Baudilio LYNCH, [place] gestation of [id number] [place], tel: , [place]. [id number]. tel: tel:[phone] Associates [facility] Encounter for Aug-2 Mannie Referring In Womens suprvsn of normal 4-201 [place]. 700 Provider: John BRITO, , second 7 Medical Katherine PO Box [id number] weeks [facility], 700 1522, gestation of Leoncio Elizabeth, 120, Center Dr LYCNH, Baudilio, Leoncio 120, [id number], Baudilio LYNCH, [place] [id number] [place], tel: , [place]. [id number]. tel: tel:[phone] Associates B[facility] Stout nutritional Aj-2 Mannie Referring In Womens and metab 7-201 [place]. 700 Provider: Health DARYL, diseases comp 7 Medical Katherine PO Box preg, unsp [facility], 700 1522, triEncntr screen Leoncio Elizabeth, for infections w 120, Center Dr LYNCH, sexl mode of Baudilio, Leoncio 120, [id number], transmissEncounte Baudilio LYNCH, r for screening [id number] [place], tel:2 for oth , [place]. [id number]. infec/parastc tel: tel: diseasesEncounter [phone] for suprvsn of normal , first trimesterEncounte r for screening of mother9 weeks gestation of Associates [facility] Hypothyroidism, [place] Referring In Womens unspecifiedEncntr 3-201 Katherine. Provider: John BRITO, for braider setter exam 6 700 Katherine PO Box (general) Medical [place], 700 1522, (routine) w/o [facility] Medical Aries, findingsPap Smear , [facility] Dr LYNCH, Screening, 120, Leoncio 120, , CervixEncounter Baudilio [place], for initial [place], tel: prescription of [phone]. contraceptive , [place]. tel: pillsPersonal tel: [phone] history of [id number] gestational diabetesPersonal history of gestational diabetes Associates [facility] Alexi Referring In Womens 3-201 Dominique. Provider: John BRITO, 4 700 Dominique PO Box Medical [place] 1522, Center S, 700 Dr Aries, [facility] [place], 120, [place] [id number], Baudilio, [facility] 120, [place] Baudilio LYNCH, tel:+ [phone] SYED, , [place]. [id number]. tel: tel: [phone] Lakshmi [place] Alexi Referring In Womens 3-201 Dominique. Provider: John BRITO, 4 700 Dominique PO Box Medical [place] 1522, Center S, 700 Dr Aries, [facility] [place], 120, [place] [id number], Baudilio, [facility] 120, [place] Baudilio LYNCH, tel:+ [phone] SYED, , [place]. [id number]. tel: tel:[phone] Lakshmi [place] Feb- East In Womens 8-200 Cynthia. Health DARYL, 8 700 PO Box Medical 1522, [place] Dr Aries, [facility], 120, [id number], [place], [place], tel:[phone] [phone] , . tel:[phone] Family History Family Member Diagnosis Age At [...] older Payers Payer name Insurance type Covered constitution party ID Authorization(s) [facility] [id number] [facility] [id number] [facility] [id number] Social History Type Description Quantity Date Captured Alcohol Use Details No Caffeine Use Details Unknown Tobacco Use Status Unknown Smoking Status Never smoker Vital Signs Date / Height Weight BMI Pulse Blood Temperature Respiratory Body Head BMI Time: Rate Pressure Rate Surface Circumference percentile Area 130.50 33.9 131/84 -2017 lbs 3 mm[Hg] 2:20 kg/m PM eter (2) Chief Complaint And Reason For Visit Unknown Chief Complaint And Reason For Visit Reason For Referral Reason For Referral Unknown Plan Of Care Date Type Action Status Appointment Elyo Kimball BOOKED Future Order: Lab Order Pap Smear With HPV Reflex If ASCUS Ordered (WPMPap1) Future Order: Radiology Order Complete OB Ultrasound > 14 Ordered Weeks ([id number]) Date Type Problem Goal Intervention Status Start [...]
--- OUTSIDE RECORDS SUMMARY | 2017-10-13 05:44 | External Medical Summary | Continuity of Care Document ---
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 700 Health DARYL, 7 Medical PO Box [place] 1522, , Leoncio Chris, 120, Baudilio LYNCH, [id number], [place], [place] [id number] tel: , [place]. tel: [phone] Associates [facility] Endo, nutritional Feb- Mannie Referring In Womens and metab diseases [place]. 700 Provider: Health DARYL, comp preg, unsp 7 Medical Katherine PO Box triEncntr screen [facility], 700 1522, for infections w , [facility] Aries, sexl mode of 120, [place] Dr LYNCH, transmissEncounter Baudilio, [facility] 120, , for screening for Baudilio LYNCH, oth infec/parastc [id number] SYED, tel: diseasesEncounter , [place]. [phone]. for suprvsn of tel: tel: normal , [phone] first trimesterEncsan gab[facility] medical centerer for screening of mother9 weeks gestation of Associates Baudilio Hypothyroidism, [place] Referring In Womens unspecifiedEncntr - Katherine. Provider: John BRITO, for ob gyn physician assistant exam 6 700 Katherine PO Box (general) (routine) [facility], [facility] 1522, w/o abn findingsPap [facility] Aries, Smear Screening, , [facility] Dr LYNCH, CervixEncounter for 120, Leoncio 120, , initial Baudilio [place], prescription of SYED LYNCH, tel: contraceptive [phone]. [facility] , [place]. tel: history of tel: [phone] gestational [phone] diabetesPersonal history of gestational diabetes Associates Baudilio Alexi Referring In Womens 3-201 Dominique. Provider: Health DARYL, 4 700 Dominique PO Box [facility] 1522, Center Juan, [address] Chris Dr, [facility] Joel LYNCH, 120, Center [id number], Baudilio [facility] 120, [place] Baudilio LYNCH, tel: [phone] SYED, , [place]. [id number]. tel: tel: [phone] Lakshmi [place]stud[place] May- [facility] Referring In Womens 3-201 Dominique. Provider: Health PA, 4 700 Dominique Box Medical [facility] 1522, Center S, [address] Dr Aries, [facility], 120, [place] [id number], [facility] 120, [place], Baudilio, tel: [phone] [place], , [place]. [id number]. tel: tel: [phone] Lakshmi Astudillo Feb- East In Womens 8-200 Cynthia. Health PA, 8 700 [facility] 1522, [place] Dr Aries, [facility], 120, [id number], [place], [facility], tel: [phone] , [place]. tel: [phone] Family History Family Member Diagnosis Age At [...] name Insurance type Covered democrat ID Authorization(s) [facility] [place] BL [id number] Social History Type Description Quantity Date Captured [...]
--- OUTSIDE RECORDS SUMMARY | 2017-10-13 05:44 | External Medical Summary | Continuity of Care Document ---
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 700 Provider: Health PA, , third 7 Medical Katherine PO Box [id number] weeks [place], 700 1522, gestation of Leoncio [facility], 120, [place] Deleon [facility] 120, [id number], [place] LYNCH, [id number] [place], tel: , [place]. [phone]. [id number] tel: tel: [phone] Lakshmi [place] Gestational Jul-1 Mannie Referring In Womens diabetes mellitus 5-201 [place]. [facility] Provider: Health DARYL, in , 7 Medical Katherine PO Box diet [id number] Center [facility], [facility] 1522, weeks gestation Leoncio Elizabeth, of 120, Center Dr LYNCH, [place], [facility] 120, [id number], [place], [place] [id number] [place], tel: , [place]. [id number]. tel: tel: [phone] [facility] Dec-0 Mannie In Womens 8-201 [place]. 700 Health DARYL, 7 Medical PO Box Center 1522, Leoncio Elizabeth, 120, [place]ED, [place], [id number], [place], [place] tel: , [place]. tel: [phone] aLkshmi [place] Dec-0 Mannie In Womens 4-201 [place]. 700 Health DARYL, 7 Medical PO Box [place] 1522, Leoncio Elizabeth, 120, [place] LYNCH, , [place], [place] tel: , [place]. tel: [phone] Lakshmi [place] Previous Low Dec-0 Mannie Referring In Womens Transverse 1-201 [place]. 700 Provider: John BRITO, C-SectionEndo, 7 Medical Katherine PO Box nutritional and Center [facility], [facility] 1522, metab diseases Leoncio Elizabeth, comp preg, third 120, Center Dr LYNCH, tri28 weeks [facility] 120, [id number], gestation of Baudilio LYNCH, [place], tel: , [place]. [id number]. tel: tel: [phone] Lakshmi [place] Encounter for Nov-0 Mannie Referring In Womens suprvsn of normal 3-201 [place]. 700 Provider: John BRITO, , second 7 Medical Katherine PO Box [id number] weeks [facility], [facility] 1522, gestation of Leoncio Elizabeth, 120, Center Baud[place] Deleon, [facility] 120, [id number], [place], [place], [place] [id number] [place], tel: , [place]. [id number]. tel: tel: [phone] [facility] Encounter for Oct-0 Mannie Referring In Womens suprvsn of normal 4-201 [place]. 700 Provider: Health PA, , second 7 Medical Katherine PO Box [id number] weeks Center [facility], 700 1522, gestation of Leoncio Elizabeth, 120, Center [place] Deleon, Leoncio 120, [id number], [place] L[place] [id number] [place], tel: , [place]. [id number]. tel: tel:[phone] [facility] Stout, nutritional Oct-0 Mannie Referring In Womens Ultrasound and metab 4-201 [place]. 700 Provider: Health DARYL, diseases comp 7 Medical Katherine PO Box preg, second Center [facility], [facility] 1522, triEncounter For Leoncio Elizabeth, 120, Center Dr LYNCH, Screening For Baudilio, Leoncio 120, [id number], [id number] [place] LYNCH, weeks gestation SYED, tel: of , [place]. [id number]. tel: tel:[phone] [facility] Stout, nutritional Sep-1 Mannie Referring In Womens and metab 4-201 [place]. 700 Provider: John BRITO diseases comp 7 Medical Katherine PO Box preg, second [facility], 700 1522, triEncounter for Leoncio Elizabeth, suprvsn of normal 120, Center Dr LYNCH, , second Baud[place], Leoncio 120, [id number], [id number] weeks [place] LYNCH, [place] gestation of [id number] SYED, tel: , [place]. [id number]. tel: tel:[phone] [facility] Encounter for Aug-2 Mannie Referring In Womens suprvsn of normal 4-201 [place]. 700 Provider: Health DARYL, , second 7 Medical Katherine PO Box [id number] weeks [facility], 700 1522, gestation of Leoncio Elizabeth, 120, Center [place] Deleon, Leoncio 120, [id number], [place] LYNCH, [place] [id number] [place]ED, tel: , [place]. [id number]. tel: tel:+ [phone] [facility] Endo, nutritional Feb- Mannie Referring In Womens and metab 7- [place]. 700 Provider: Health DARYL, diseases comp 7 Medical Katherine PO Box preg, unsp Center [place], 700 1522, triEncntr screen , [facility] Aries, for infections w 120, [place] Dr LYNCH, sexl mode of [place], [facility] 120, , transmissEncounte SYED [place], r for screening [id number] [place], tel: for oth , [place]. [id number]. infec/parastc tel: tel:+ diseasesEncounter [phone] for suprvsn of normal , first trimesterEncounte r for screening of mother9 weeks gestation of [facility] Hypothyroidism, [place] Referring In Womens unspecifiedEncntr - Katherine. Provider: John BRITO, for sheet rock taper exam 6 700 Katherine PO Box (general) Medical [facility], 700 1522, (routine) w/o abn [place] Joel Chris, findingsPap Smear , [facility] Dr LYNCH, Screening, 120, Leoncio 120, , CervixEncounter Baudilio [place], for initial SYED LYNCH, tel: prescription of [phone]. contraceptive , [place]. tel: pillsPersonal tel: [phone] history of [id number] gestational diabetesPersonal history of gestational diabetes [facility] Alexi Referring In Womens 3-201 [place]. Provider: John BRITO, 4 700 Dominique PO Box [facility] 1522, Center S, [address] Dr Aries, [facility], 120, [place] [id number], [facility], [place] LYN[place], tel: [phone] SYED, , [place]. [id number]. tel: tel: [phone] [facility] May- Alexi Referring In Womens 3-201 [place]. Provider: John BRITO, 4 700 Dominique [facility] 1522, Center S, [address] Dr Aries, [facility], 120, [place] [id number], [facility] 120, [place], [place], tel:[phone] [place], [phone] , . [id number]. tel: tel: [phone] [facility] Feb- East In Womens 8-200 [place]. [facility], 8 700 [facility] 1522, [place] Dr Aries, [facility], 120, [id number], [place], [place], tel: [phone] , [place]. tel: [phone] Family History Family Member Diagnosis Age At [...] quadrivalent, preservative free, 3 yrs or older [facility] completed Source: New Immunization Record Influenza, injectable, completed Source: New Immunization Record quadrivalent, preservative free, 3 yrs or older Payers Payer name Insurance type Covered republican ID Authorization(s) [facility] [id number] [facility] [id number] [facility] [id number] Social History Type Description Quantity Date Captured [...] Eloy Kimball BOOKED Appointment Eloy Kimball - [facility] - RC/S BOOKED Future Order: Lab Order Pap Smear With HPV Reflex If ASCUS Ordered ([id number]) Future Order: Radiology Order Complete OB Ultrasound > 14 Ordered Weeks ([id number]) Date Type Problem Goal Intervention Status Start [...]
--- OUTSIDE RECORDS SUMMARY | 2017-10-13 05:44 | External Medical Summary | Continuity of Care Document ---
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 Provider: John BRITO, in , 8 700 Katherine PO Box diet Medical [place], 700 2402, [facility] Aries s Low Transverse , [facility] Center Dr LYNCH, [id number] weeks 120, Leoncio 120, [id number], gestation of [place], [place], SYED, tel:[phone]. , [place]. tel: tel: [phone] Lakshmi [place] Encounter for Dec-2 Mannie Referring In Womens suprvsn of normal 7-201 [place]. 700 Provider: Health PA, , third 7 Medical Katherine PO Box weeks [facility], 700 1522, gestation of Leoncio Elizabeth, 120, Center Dr LYNCH, [place], [facility] 120, [id number], [place], [place] [id number] [place], tel: , [place]. [id number]. tel: tel: [phone] Lakshmi [place] Gestational Dec-1 Mannie Referring In Womens diabetes mellitus 5-201 [place]. 700 Provider: Health PA, in , 7 Medical Katherine PO Box diet [id number] [facility], [facility] 1522, weeks gestation Leoncio Elizabeth, of 120, Center Dr LYNCH, [place], [facility] 120, , [place], [place] [id number] [place], tel: , [place]. [id number]. tel: tel: [phone] Lakshmi [place] Dec-0 Mannie In Womens 8-201 [place]. 700 Health PA, 7 Medical PO Box Center 1522, Leoncio Elizabeth, 120, [place] LYN[place], [id number], [place], [place] [id number] tel: , [place]. tel: [phone] Lakshmi [place] Dec-0 Mannie In Womens 4-201 [place]. 700 Health PA, 7 Medical PO Box Center 1522, Leoncio Elizabeth, 120, SYED, [place], [id number], [place], [place] [id number] tel: , [place]. tel: [phone] Lakshmi [place] Previous Low Dec-0 Mannie Referring In Womens Transverse 1-201 [place]. 700 Provider: Health DARYL, C-SectionEndo, 7 Medical Katherine PO Box nutritional and Center [facility], [facility] 1522, metab diseases Leoncio Elizabeth, comp preg, third 120, Center Dr LYNCH, tri28 weeks [facility] 120, [id number], gestation of Baudilio LYNCH, [id number] SYED, tel:+ , [place]. [id number]. tel: tel:+ [phone] [facility] Encounter for Nov-0 Mannie Referring In Womens suprvsn of normal 3-201 [place]. 700 Provider: Health DARYL, , second 7 Medical Katherine PO Box [id number] weeks Center [place], 700 1522, gestation of Dr [facility] Aries, 120, Center Dr LYNCH, [place], [facility] 120, [id number], SYED, [place], [place] [id number] SYED, tel: , [place]. [id number]. tel: tel:+ [phone] [facility] Encounter for Oct-0 Mannie Referring In Womens suprvsn of normal 4-201 [place]. 700 Provider: Health DARYL, , second 7 Medical Katherine PO Box weeks [facility], 700 1522, gestation of Dr [facility] Aries, 120, Center [facility] 120, [id number], SYED, [place], [place] [id number] SYED, tel: , [place]. [id number]. tel: tel:+ [phone] [facility] Stout, nutritional Oct-0 Mannie Referring In Womens Ultrasound and metab 4-201 [place]. 700 Provider: Health PA, diseases comp 7 Medical Katherine PO Box preg, second Center [place], 700 1522, triEncounter For Dr [facility] Aries, 120, Center Dr LYNCH, Screening For Baud[place], [facility] 120, [id number], [id number] [place] LYNCH, weeks gestation [id number] SYED, tel:+ of , [place]. [id number]. tel: tel:[phone] [facility] Stout, nutritional Sep-1 Mannie Referring In Womens and metab 4-201 [place]. 700 Provider: Health DARYL, diseases comp 7 Medical Katherine PO Box preg, second Center [place], 700 1522, triEncounter for Dr [facility] Aries, suprvsn of normal 120, Center Dr LYNCH, , second [place], [facility] 120, , [id number] weeks [place] LYNCH, gestation of [id number] SYED, tel: , [place]. [id number]. tel: tel:+ [phone] [facility] Encounter for Aug-2 Mannie Referring In Womens suprvsn of normal -201 [place]. 700 Provider: Health DARYL, , second 7 Medical Katherine PO Box [id number] weeks Maynard [place], 700 1522, gestation of Dr [facility] Joel Chris, 120, [address] Dr LYNCH, [place], [facility] 120, , [place] LYNCH, [id number] [place], tel: , [place]. [phone]. [id number] tel: tel:+ [phone] [facility] Endo, nutritional Feb-2 Mannie Referring In Womens and metab 7-201 [place]. 700 Provider: John BRITO, diseases comp 7 Medical Katherine PO Box preg, unsp [place], 700 1522, triEncntr screen Dr [facility] Aries, for infections w 120, Center Dr LYNCH, sexl mode of [place], [facility] 120, , transmissEncounte Baudilio LYNCH, r for screening [id number] [place], tel: for oth , [place]. [phone]. [id number] infec/parastc tel: tel: diseasesEncounter [phone] for suprvsn of normal , first trimesterEncounte r for screening of mother9 weeks gestation of [facility] Hypothyroidism, [place] Referring In Womens unspecifiedEncntr 3-201 [place]. Provider: John BRITO, for rewrite editor exam 6 700 Katherine PO Box (general) Medical [place], 700 1522, (routine) w/o abn [place] Joel Chris, findingsPap Smear , [facility] Dr LYNCH, Screening, 120, Leoncio 120, , CervixEncounter Baudilio [place], for initial SYED LYNCH, tel: prescription of [phone]. contraceptive , [place]. tel: pillsPersonal tel: [phone] history of [id number] gestational diabetesPersonal history of gestational diabetes [facility] Alexi Referring In Womens 3-201 [place]. Provider: Health DARYL, 4 700 Dominique PO Box Medical [place] 1522, Center S, [address] Dr Aries, [facility] [place], 120, Maynard [id number], [facility] 120, SYED, [place], tel: [phone] [place], , [place]. [id number]. tel: tel: [phone] [facility] Alexi Referring In Womens 3-201 [place]. Provider: Health DARYL, 4 700 Dominique PO Box Medical [place] 1522, Center S, [address] Dr Aries, [facility] [place], 120, Maynard [id number], [facility] 120, Baudilio LYNCH, tel: [phone] [place], , [place]. [id number]. tel: tel: [phone] [facility] Feb- East In Womens 8-200 Cyn[place]. Health DARYL, 8 700 PO Box Medical 1522, [address] Dr Aries, [facility] [place], 120, [id number], [place], [place], tel: [phone] , [place]. tel: [phone] Family History Family Member Diagnosis Age At [...] older Payers Payer name Insurance type Covered green party ID Authorization(s) [place] [id number] [place] [id number] [place] [id number] [place] [id number] Social History Type Description Quantity Date Captured Alcohol Use Details No Caffeine Use Details Unknown Tobacco Use Status Unknown Smoking Status Never smoker Vital Signs Date / Height Weight BMI Pulse Blood Temperature Respiratory Body Head BMI Time: Rate Pressure Rate Surface Circumference percentile Area 132.80 34.5 134/2017 lbs 3 mm[Hg] 4:25 kg/m PM eter (2) Chief Complaint And Reason For Visit Unknown Chief Complaint And Reason For Visit Reason For Referral Reason For Referral Unknown Plan Of Care Date Type Action Status Appointment Eloy Kimball BOOKED Appointment Eloy Kimball - [facility] [place]/S BOOKED Future Order: Lab Order Pap Smear With HPV Reflex If ASCUS Ordered (WPMPap1) Future Order: Radiology Order Complete OB Ultrasound > 14 Ordered Weeks ([id number]) Date Type Problem Goal Intervention Status Start [...] childbirth classes / hospital facilities hospital registration Aj-27-2017 genetic testing Zika virus assessment & precautions
--- OUTSIDE RECORDS SUMMARY | 2017-10-13 05:44 | External Medical Summary | Continuity of Care Document ---
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 700 Provider: Health PA, , second 7 Medical Katherine PO Box [id number] weeks [facility], 700 1522, gestation of Leoncio Elizabeth, 120, Center Baudilio Deleon, [facility] 120, [id number], [place] LYN[place], [id number] [place], tel:+2 , [place]. [id number]. tel: tel:[phone] Lakshmi [place] Encounter for Oct-0 Mannie Referring In Womens suprvsn of normal 4-201 [place]. 700 Provider: Health PA, , second 7 Medical Katherine PO Box [id number] weeks [facility], 700 1522, gestation of Leoncio Elizabeth, 120, Center Baudilio Deleon, [facility] 120, [id number], Baudilio LYNCH, [id number] SYED, tel:2 , [place]. [id number]. tel: tel:[phone] Lakshmi Stout, nutritional Oct-0 Mannie Referring In Womens Ultrasound and metab 4-201 [place]. 700 Provider: Health DARYL, diseases comp 7 Medical Katherine PO Box preg, second Center [facility], 700 1522, triEncounter For Leoncio Elizabeth, 120, Center Dr LYNCH, Screening For Baudilio, [facility] 120, [id number], [id number] [place] LYNCH, weeks gestation [id number] [place], tel:+ of , [place]. [id number]. tel: tel:[phone] [facility] Stout, nutritional Sep-1 Mannie Referring In Womens and metab 4-201 [place]. 700 Provider: Health DARYL, diseases comp 7 Medical Katherine PO Box preg, second [facility], 700 1522, triEncounter for , Leoncio Chris, suprvsn of normal 120, Center Dr LYNCH, , second Baudilio [facility] 120, [id number], [id number] weeks [place] LYNCH, [place] gestation of [id number] [place], tel:+ , [place]. [id number]. tel: tel:+ [phone] Lakshmi [place] Encounter for Aug-2 Mannie Referring In Womens suprvsn of normal 4-201 [place]. 700 Provider: Health DARYL, , second 7 Medical Katherine PO Box [id number] weeks Center [facility], 700 1522, gestation of Leoncio Elizabeth, 120, Center Dr LYNCH, Baudilio [facility] 120, [id number], SYED, [place], [place] [id number] [place], tel:+ , [place]. [id number]. tel: tel:+ [phone] Lakshmi [place] Aj-2 Mannie In Womens 8-201 [place]. 700 Health DARYL, 7 Medical PO Box Center 1522, Leoncio Elizabeth, 120, [place] LYNCH, [id number], [place], [place] [id number] tel:+ , [place]. tel: [phone] Lakshmi Stout, nutritional Aj-2 Mannie Referring In Womens and metab 7-201 [place]. 700 Provider: Health DARYL, diseases comp 7 Medical Katherine PO Box preg, unsp Center [facility], 700 1522, triEncntr screen Leoncio Elizabeth, for infections w 120, Center Dr LYNCH, sexl mode of Leoncio [place] 120, , transmissEncounte [place]ilio LYNCH, r for screening [id number] [place], tel: for oth , [place]. [id number]. infec/parastc tel: tel:316 diseasesEncounter [phone] for suprvsn of normal , first trimesterEncounte r for screening of mother9 weeks gestation of [facility] Hypothyroidism, [place] Referring In Womens unspecifiedEncntr 3-201 [place]. Provider: Health DARYL, for punch molder exam 6 700 Katherine PO Box (general) Medical [place], 700 1522, (routine) w/o [facility] Joel Chris, findingsPap Smear , [facility] Dr LYNCH, Screening, 120, Leoncio 120, , CervixEncounter [place]audilio [place], for initial SYED LYNCH, tel: prescription of [phone]. contraceptive , [place]. tel: pillsPersonal tel: [phone] history of [id number] gestational diabetesPersonal history of gestational diabetes [facility] Alexi Referring In Womens 3-201 [place]. Provider: John BRITO, 4 700 Dominique PO Box Medical [place] 1522, Center S, [address] Dr Aries, [facility], 120, [place] [id number], [facility] 120, Baudilio LYNCH, tel: [phone] SYED, , [place]. [id number]. tel: tel: [phone] Lakshmi [place] Referring In Womens 3-201 Dominique. Provider: Health DARYL, 4 700 Dominique PO Box Medical [place] 1522, Center S, [address] Dr Aries, [facility], 120, Center [id number], [facility] 120, [place] Baud[place] LYNCH, tel:2 [phone] SYED, , [place]. [id number]. tel: tel:[phone] Lakshmi [place] Feb- East In Womens 8-200 Cynthia. Health DARYL, 8 700 PO Box Medical 1522, [place] Dr Chris Ste [place], 120, [id number], [facility] [place], tel:[phone] , [place]. tel: [phone] Family History Family Member Diagnosis Age At [...] Diabetes mellitus Immunizations Vaccine Date Status Comments Influenza, injectable, completed Source: New Immunization Record quadrivalent, preservative free, 3 yrs or older Rhophylac completed Source: New Immunization Record Influenza, injectable, completed Source: New Immunization Record quadrivalent, preservative free, 3 yrs or older Payers Payer name Insurance type Covered libertarian ID Authorization(s) [facility] [id number] [facility] [id number] Social History Type Description Quantity Date Captured Alcohol Use Details No Caffeine Use Details Unknown Tobacco Use Status Unknown Smoking Status Never smoker Vital Signs Date / Height Weight BMI Pulse Blood Temperature Respiratory Body Head BMI Time: Rate Pressure Rate Surface Circumference percentile Area 126.10 32.7 119/ lbs 8 mm[Hg] 3:35 kg/m PM eter (2) Chief Complaint And Reason For Visit Unknown Chief Complaint And Reason For Visit Reason For Referral Reason For Referral Unknown Plan Of Care Date Type Action Status Appointment Eloy Kimball BOOKED Future Order: Lab Order Pap Smear With HPV Reflex If ASCUS Ordered (WPMPap1) Future Order: Radiology Order Complete OB Ultrasound > 14 Ordered Weeks ([id number]) Date Type Problem Goal Intervention Status Start [...]
--- OUTSIDE RECORDS SUMMARY | 2017-10-13 05:44 | External Medical Summary | Continuity of Care Document ---
:1985 Author Organization [facility] Address [address] [place], [place] [id number] Phone Care Team Providers Name Role Phone Jessica Birch MD Unavailable Unavailable Allergies, Adverse Reactions, Alerts Substance Reaction Severity Status sulfamoxole Hives Unknown Active Medications Medication Instructions Dosage Effective Dates Status Comments (start - stop) levothyroxine 50 mcg take 1 tablet by 50 MCG - Active tablet oral route every day ORAL - Active TABLET Flonase 50 spray 1 spray by Not Available - Active mcg/actuation nasal intranasal route spray,suspension every day in each nostril as needed fexofenadine 180 mg take 1 tablet by 180 MG - Active tablet oral route every day Problems Condition Effective Dates (start - stop) Clinical Status Endo, nutritional and metab diseases - comp preg, unsp tri Encntr screen for infections w sexl - mode of transmiss Encounter for screening for oth - infec/parastc diseases Encounter for suprvsn of normal - , first trimester Encounter for screening of - mother 9 weeks gestation of - Hypothyroidism, unspecified Encntr for sink cutter exam (general) - (routine) w/o abn findings Pap Smear Screening, Cervix Encounter for initial prescription of contraceptive pills Personal history of gestational diabetes Personal history of gestational diabetes Active Procedures Procedure Date Initial OB Visit No Charge - 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 Infct antign, chlamydia trac, ampl Urine Culture Glycosylated hemoglobin assay OB Panel With An HIV Neisseria Gonorrhoeae, Amplification Assay thyroid stimulating hormone Venpnctr fngr/heel/ear stick routne Results Test Name Date and Time Measure Units Reference Range Abnormal Flag Comments Panel Description: OBSTETRIC PANEL WHITE BLOOD CELL 8.5 Thousand/uL 3.8-10.8 N COUNT 11:38:00 RED BLOOD CELL 4.52 Million/uL 3.80-5.10 N COUNT 11:38:00 HEMOGLOBIN 13.2 g/dL 11.7-15.5 N 11:38:00 HEMATOCRIT 39.4 % 35.0-45.0 N 11:38:00 MCV 87.2 fL 80.0-100.0 N 11:38:00 MCH 29.2 pg 27.0-33.0 N 11:38:00 MCHC 33.5 g/dL 32.0-36.0 N 11:38:00 RDW 12.6 % 11.0-15.0 N 11:38:00 PLATELET COUNT 385 Thousand/uL 140-400 N 11:38:00 MPV 11.1 fL 7.5-12.5 N 11:38:00 ABSOLUTE 5814 cells/uL 5670-0546 N NEUTROPHILS 11:38:00 ABSOLUTE 1972 cells/uL 850-3900 N LYMPHOCYTES 11:38:00 ABSOLUTE 570 cells/uL 200-950 N MONOCYTES 11:38:00 ABSOLUTE 111 cells/uL 15-500 N EOSINOPHILS 11:38:00 ABSOLUTE 34 cells/uL 0-200 N BASOPHILS 11:38:00 NEUTROPHILS 68.4 % N 11:38:00 LYMPHOCYTES 23.2 % N 11:38:00 MONOCYTES 6.7 % N 11:38:00 EOSINOPHILS 1.3 % N 11:38:00 BASOPHILS 0.4 % N 11:38:00 ANTIBODY SCREEN, NO ANTIBODIES N RBC W/REFL ID, 11:38:00 DETECTED Reference range TITER AND AG No antibodies detected This assay is a screening test for the detection of red blood cell antibodies. The test is not to be used for pretransfusion screening or for the medical management of an alloimmunized . ABO GROUP AB 11:38:00 RH TYPE RH (D) 11:38:00 NEGATIVE RPR (DX) W/REFL NON-REACTIVE NON-REACTIV N TITER AND 11:38:00 E CONFIRMATORY TESTING HEPATITIS B NON-REACTIVE NON-REACTIV N SURFACE ANTIGEN 11:38:00 E RUBELLA ANTIBODY 9.53 index N Index (IGG) 11:38:00 Interpretation ----- <0.90 Not consistent with Immunity 0.90-0.99 Equivocal > or=1.00 Consistent with Immunity The presence of rubella IgG antibody suggests immunization or past or current infection withrubella virus.Test performed at [facility]PORATIONSafetyCertifiedMCLAREN THUMB [place] [address]Psucylt r: REYES CHOW DO,MPH Panel Description: HIV 1/2 ANTIGEN/ANTIBODY,FOURTH GENERATION W/RFL HIV NON-REACTIVE NON-REACTIVE N HIV-1 antigen and HIV-1/HIV- 2 antibodies were AG/AB, 11:38:00 notdetected. There is no laboratory evidence of 4TH GEN HIVinfection. PLEASE NOTE: This information has been disclosed toyou from records whose confidentiality may beprotected by state law. If your state requires suchprotection, then the state law prohibits you frommaking any further disclosure of the informationwithout the specific written consent of the personto whom it pertains, or as otherwise permitted by law.A general authorization for the release of medical orother information is NOT sufficient for this purpose. For additional information please refer tohttp://education.[employer]/faq/SFZ710(This link is being provided for informational/educational purposes only.) The performance of this assay has not been clinicallyvalidated in patients less than 2 years old. Test [place] [address]Ajdccoii: REYES CHOW DO,MPH Panel Description: TSH W/REFLEX TO FT4 T4, FREE 11:38:00 1.0 ng/dL 0.8-1.8 N TSH W/REFLEX TO 11:38:00 5.63 mIU/L H Reference Range FT4 > or=20 Years 0.40-4.50 Ranges First trimester 0.26-2.66 Second trimester 0.55-2.73 Third trimester 0.43-2.91Test performed at [facility] [id number] [place] [address]Xqljfuqn: REYES CHOW DO,MPH Panel Description: Hemoglobin A1c/Hemoglobin.total in Blood HEMOGLOBIN A1c 5.1 % of total <5.7 N For the purpose of 11:38:00 Hgb screening for the presence ofdiabetes: <5.7% Consistent with the absence of diabetes5.7-6.4% Consistent with increased risk for diabetes (prediabetes)> or=6.5% Consistent with diabetes This assay result is consistent with a decreased riskof diabetes. Currently, no consensus exists regarding use ofhemoglobin A1c for diagnosis of diabetes in children. According to [place] Diabetes Association (ADA)guidelines, hemoglobin A1c <7.0% represents optimalcontrol in non- diabetic patients. Differentmetrics may apply to specific patient populations. Standards of Medical Care in Diabetes(ADA). Test performed at [facility] [id number] [place] [address]Mqaubsyc: REYES CHOW DO,MPH Panel Description: Bacteria identified in Urine by Culture CULTURE, URINE, 10:45:00 SEE NOTE A CULTURE, URINE, ROUTINE ROUTINE MICRO NUMBER: [id number] TEST STATUS: FINAL SPECIMEN SOURCE: URINE SPECIMEN QUALITY: ADEQUATE RESULT: 10,000-50,000 CFU/mL of Lactobacillus species May represent colonizers from external and internal genitalia. No further testing (including susceptibility) will be performed. COMMENT: Additional organism(s) less than 10,000 CFU/mL isolated. These organisms, commonly found on external and internal genitalia, are considered colonizers. No further testing performed.REPORT COMMENT:RTest performed at [facility] [id number] [place] [address]Mqauldbs: REYES CHOW DO,MPH Panel Description: CHLAMYDIA/N. GONORRHOEAE RNA, TMA CHLAMYDIA NOT DETECTED NOT DETECTED N TRACHOMATIS RNA, 10:45:00 TMA NEISSERIA NOT DETECTED NOT DETECTED N GONORRHOEAE RNA, 10:45:00 TMA [id number] SEE NOTE This test was 10:45:00 performed using the [employer] COMBO2 Assay([employer] The analytical performance characteristics of this assay, when used to test SurePath specimens havebeen determined by [employer]. Test performed at [facility] [address] [address]Pjaunogz: REYES CHOW DO,MPH Panel Description: Pap Smear With HPV Reflex If ASCUS Document Advance Directives Directive Yes / No Effective Date File Name Unknown Encounters Encounter Practice Location Reason(s) Diagnoses Date Provider Care Team Description For Visit Members Lakshmi Astudillo [facility] [address], [address], Leoncio Elizabeth, [facility], Baudilio L[place], [id number], [place], [id number] tel: , . tel: [phone] [facility] Endo, nutritional Mannie Referring In Womens and metab diseases [place] [address] Provider: Health [place], comp preg, unsp 7 Medical Katherine PO Box triEncntr screen Center [facility], [facility] [address], for infections w Dr [facility] Joel Chris, sexl mode of 120, Center Dr LYNCH, transmissEncounter Baudilio [facility] 120, [id number], for screening for Baudilio LYNCH, ot infec/parastc [id number] CT, tel: [facility] . [phone]. [id number] for suprvsn of tel: tel: normal , [phone] first trimesterEncounter for screening of mother9 weeks gestation of [facility] Hypothyroidism, [place] Referring In Womens unspecifiedEncntr 3-201 Katherine. Provider: John BRITO, for sink cutter exam 6 700 Katherine [address] (general) (routine) Medical [place], [address] 15[address], w/o abn findingsPap [place] Joel Chris, Smear Screening, , [facility] Dr LYNCH, CervixEncounter for 120, Leoncio 120, [id number], initial Baudilio Eckert, prescription of SYED LYNCH, tel: contraceptive [phone]. [facility] , [place]. tel: history of tel: [phone] gestational [phone] diabetesPersonal history of gestational diabetes [facility] Alexi Referring In Womens 3-201 Dominique. Provider: John BRITO, 4 700 Dominique [address] Medical [facility], [place], [facility] [address] Aries, [facility] [place], 120, [place] [id number], [facility], Baudilio LYNCH, tel:[phone] SYED, , [place]. [id number]. tel: tel: [phone] Lakshmi Astudillo May- Alexi Referring In Womens 3-201 Dominique. Provider: John BRITO, 4 700 Dominique PO Box Medical [facility] 1522, [facility], [facility] [address] Aries, [facility] [place], 120, [place] [id number], [place] [address], Baudilio [place], tel: [phone] SYED, , [place]. [id number]. tel: tel: [phone] Lakshmi Astudillo Feb- East In Womens 8-200 Cynthia. Health DARYL, 8 700 [address] Medical [address], [place] [address] Aries, [facility] [place], 120, [id number], Astudillo, SYED, tel:[phone] , [place]. tel: [phone] Family History Family Member Diagnosis Age At [...] Insurance type Covered green party ID Authorization(s) ARIFAYE FISCHER [id number] Social History Type Description Quantity Date Captured Alcohol Use Details No Caffeine Use Details coffee 1 cup per day Tobacco Use Status Never smoked tobacco Smoking Status Never smoker Non-Smoking Tobacco Use : No Details Available : No Details Available Details Vital Signs Date / Height Weight BMI Pulse Blood Temperature Respiratory Body Head BMI Time: Rate Pressure Rate Surface Circumference percentile Area 115.50 20.3 124/2017 lbs 8 mm[Hg] 10:46 kg/m AM eter (2) Chief Complaint And [...]
--- OUTSIDE RECORDS SUMMARY | 2017-10-13 05:44 | External Medical Summary | Continuity of Care Document ---
:1985 Demographics Phone Unavailable Preferred Language Unknown Marital Status Unknown Oriental Orthodox Affiliation Unknown Race Unknown Ethnic Group Unknown Author Organization [facility] Allergies Active Description Code Type Severity Reaction Onset Reported/ Identified Relationship Clinical to Patient Status Yes sulfamoxole 5294 1 N/A Hives Medications Medication Packaging Start Date Stop Route Dosage Sig Date Tablet 07/24/2014 01/18/20 take LEVOTHYROXINE 16 1 tablet by oral SODIUM route every day ORTHO Tablet 10/27/2014 01/18/20 take MICRONOR 16 1 tablet by oral route every day Tablet 07/19/2015 01/18/20 take NORGESTIMATE-ETHIN 16 1 tablet by oral YL ESTRADIOL route every day Package 01/21/2016 07/22/20 take NORGESTIMATE-ETHIN 16 1 tablet by oral YL ESTRADIOL route every day Tablet 03/31/2017 08/03/20 take LEVOTHYROXINE 17 1 tablet by oral SODIUM route every day Tablet 08/03/2017 01/29/20 take LEVOTHYROXINE 19 1 tablet by oral SODIUM route every day Strip 08/04/2017 08/07/20 ONETOUCH ULTRA 17 insert 1 by TEST STRIPS Misc.(Non-Drug; Combo Route) route once fasting and postprandial Strip 08/07/2017 ONETOUCH ULTRA insert 1 by TEST STRIPS Misc.(Non-Drug; Combo Route) route once fasting and postprandial BLOOD Kit 08/07/2017 GLUCOSE MONITOR check by Misc.(Non-Drug; Combo Route) route once test blood sugar QID, fasting and 2 hours after each meal Syringe 08/14/2017 RHOPHYLAC Problems Date Dx Attending Type Code Diagnosis Diagnosed By Coded 06/03/2017 Jackson Chand O99.282 Endo, nutritional and metab diseases comp preg, second tri 06/03/2017 Jackson Chand Z36.3 Encounter For Screening For Malformations 06/03/2017 Jackson Chand Z3A.20 20 weeks gestation of 09/09/2017 Lesly Campos O24.410 Gestational diabetes L mellitus in , diet controlled 09/09/2017 Lesly Campos O34.211 Previous Low L Transverse 09/09/2017 Lesly Campos W Z3A.34 34 weeks gestation L of 09/09/2017 Lesly Campos W O24.410 Gestational diabetes L mellitus in , diet controlled 09/09/2017 Lesly Campos W O34.211 Previous Low L Transverse 09/09/2017 Lesly Campos W Z3A.34 34 weeks gestation L of 10/08/2017 W O24.410 Gestational diabetes mellitus in , diet controlled 10/08/2017 W O36.5930 Matern care for oth or susp poor fetl grth, third tri, unsp 10/08/2017 W O99.283 Endo, nutritional and metab diseases comp preg, third tri 10/08/2017 W Z3A.38 38 weeks gestation of Procedures Code Description [place] [address] Ultrasnd exam 06/03/2017 of preg uterus, compl 81998 Immuniz 07/03/2017 admnin, 1 vac, sngl/combo 77226 Flu Vaccine - 07/03/2017 Quadrivalent 87008 Injection 08/14/2017 Administration [id number] Rhophylac 100 08/14/2017 [place] [address] OB Visit No 09/09/2017 Charge 57758 Immuniz 09/09/2017 admnin, 1 vac, sngl/combo 58652 TDAP VACCINE 09/09/2017 >7 IM 84951 Ultrasnd preg 10/08/2017 uterus, flwup/repeat 90435 biophys 10/08/2017 prfl w/o nstress test 71189 UMBILICAL 10/08/2017 ARTERY ECHO Results There is no data. Encounters ACCT No. Visit Discharge Status Pt. Type Provider Facility Loc./Unit Complaint Date/Time [id number] 06/19/2014 ACT Unknown [id number] 14:29:00 [id number] 07/27/2013 ACT Unknown [id number] 08:47:00 [id number] 10/03/2017 10/03/2017 [facility] Outpatient Mannie, 17:05:00 23:59:59 Jackson Gregory [id number] 10/01/2017 10/01/2017 [facility] Outpatient Mannie, 16:20:00 23:59:59 Jackson Gregory [id number] 09/23/2017 09/23/2017 [facility] Outpatient Mannie, 16:15:00 23:59:59 Jackson Gregory [id number] 09/09/2017 09/09/2017 [facility] Outpatient Andres, 08:30:00 23:59:59 Lesly De La Torre [id number] 08/26/2017 08/26/2017 [facility] Outpatient Mannie, 16:30:00 23:59:59 Jackson Gregory [id number] 08/14/2017 08/14/2017 [facility] Outpatient Mannie, 15:30:00 23:59:59 Jackson Gregory [id number] 08/07/2017 08/07/2017 [facility] Outpatient Mannie, 09:09:00 23:59:59 Jackson R [id number] 08/03/2017 08/03/2017 [facility] Outpatient Mannie, 08:41:00 23:59:59 Jackson Gregory [id number] 07/31/2017 07/31/2017 [facility] Outpatient Mannie, 14:15:00 23:59:59 Jackson Gregory [id number] 07/03/2017 07/03/2017 [facility] Outpatient Mannie, 15:15:00 23:59:59 Jackson Gregory [id number] 06/03/2017 06/03/2017 [facility] Outpatient Mannie, 14:30:00 23:59:59 Jackson Gregory [id number] 06/03/2017 06/03/2017 CLS Outpatient Mannie, 14:15:00 23:59:59 Jackson Gregory [id number] 05/14/2017 05/14/2017 [facility] Outpatient Mannie, 08:40:00 23:59:59 Jackson Gregory [id number] 04/23/2017 04/23/2017 [facility] Outpatient Mannie, 08:30:00 23:59:59 Jackson Gregory [id number] 03/27/2017 03/27/2017 [facility] Outpatient Mannie, 16:11:00 23:59:59 Jackson Gregory [id number] 03/26/2017 03/26/2017 [facility] Outpatient Mannie, 10:45:00 23:59:59 Jackson Gregory [id number] 01/22/2016 01/22/2016 [facility] Outpatient [place], 08:05:00 23:59:59 Cynthia Garcia [id number] 01/21/2016 01/21/2016 CLS Outpatient [place], 11:00:00 23:59:59 Katherine [id number] 12/07/2015 12/07/2015 CLS Outpatient [place], 13:02:00 23:59:59 Dominique Martinez [id number] 07/19/2015 07/19/2015 [facility] Alexi, 08:29:00 23:59:59 Dominique Martinez [id number] 10/08/2017 Document 15:15:00 Registrati on [id number] 10/08/2017 Document 14:45:00 Registrati on [id number] 01/21/2016 Document 10:57:42 Registrati on [id number] 01/21/2016 Document 10:57:22 Registrati on
--- OUTSIDE RECORDS SUMMARY | 2017-10-13 05:52 | External Medical Summary | Continuity of Care Document ---
:1985 Demographics Phone Unavailable Preferred Language Unknown Marital Status Unknown Zoroastrianism Affiliation Unknown Race Unknown Ethnic Group Unknown Author Organization [facility] Allergies Active Description Code Type Severity Reaction [...] Procedures Code Description [place] [address] Ultrasnd exam 06/03/2017 of preg uterus, compl 17477 Immuniz 07/03/2017 admnin, 1 vac, sngl/combo 06259 Flu Vaccine - 07/03/2017 Quadrivalent 42581 Injection 08/14/2017 Administration [id number] Rhophylac 100 08/14/2017 [place] [address] OB Visit No 09/09/2017 Charge 77725 Immuniz 09/09/2017 admnin, 1 vac, sngl/combo 91442 TDAP VACCINE 09/09/2017 >7 IM 91722 Ultrasnd preg 10/08/2017 uterus, flwup/repeat 84376 biophys 10/08/2017 prfl w/o nstress test 72688 UMBILICAL 10/08/2017 ARTERY ECHO Results There is no data. Encounters ACCT No. Visit Discharge Status Pt. Type Provider Facility Loc./Unit Complaint Date/Time [id number] 06/19/2014 ACT Unknown [id number] 14:29:00 [id number] 07/27/2013 ACT Unknown [id number] 08:47:00 [id number] 10/03/2017 10/03/2017 [facility] Outpatient Mannie, 17:05:00 23:59:59 Jackson Gregory [id number] 10/01/2017 10/01/2017 CLS Outpatient Mannie, 16:20:00 23:59:59 Jackson Gregory [id number] 09/23/2017 09/23/2017 CLS Outpatient Mannie, 16:15:00 23:59:59 Jackson Gregory [id number] 09/09/2017 09/09/2017 [facility] Outpatient Andres, 08:30:00 23:59:59 Lesly De La Torre [id number] 08/26/2017 08/26/2017 [facility] Outpatient Mannie, 16:30:00 23:59:59 Jackson Gregory [id number] 08/14/2017 08/14/2017 [facility] Outpatient Mannie, 15:30:00 23:59:59 Jackson Gregory [id number] 08/07/2017 08/07/2017 [facility] Outpatient Mannie, 09:09:00 23:59:59 Jackson R [id number] 08/03/2017 08/03/2017 [facility] Outpatient Mannie, 08:41:00 23:59:59 Jackson Gregory [id number] 07/31/2017 07/31/2017 [facility] Outpatient Mannie, 14:15:00 23:59:59 Jackson Gregory [id number] 07/03/2017 07/03/2017 [facility] Outpatient Mannie, 15:15:00 23:59:59 Jackson Gregory [id number] 06/03/2017 06/03/2017 [facility] Outpatient Mannie, 14:30:00 23:59:59 Jackson Gregory [id number] 06/03/2017 06/03/2017 [facility] Outpatient Mannie, 14:15:00 23:59:59 Jackson Gregory [id number] 05/14/2017 05/14/2017 [facility] Outpatient Mannie, 08:40:00 23:59:59 Jackson Gregory [id number] 04/23/2017 04/23/2017 [facility] Outpatient Mannie, 08:30:00 23:59:59 Jackson Gregory [id number] 03/27/2017 03/27/2017 [facility] Outpatient Mannie, 16:11:00 23:59:59 Jackson Gregory [id number] 03/26/2017 03/26/2017 [facility] Outpatient Mannie, 10:45:00 23:59:59 Jackson Gregory [id number] 01/22/2016 01/22/2016 [facility] Outpatient [place], 08:05:00 23:59:59 Cynthia Garcia [id number] 01/21/2016 01/21/2016 [facility]LS Outpatient [place], 11:00:00 23:59:59 Katherine [id number] 12/07/2015 12/07/2015 CLS Outpatient [place], 13:02:00 23:59:59 Dominique Martinez [id number] 07/19/2015 07/19/2015 [facility] Alexi, 08:29:00 23:59:59 Dominique Martinez [id number] 10/08/2017 Document 15:15:00 Registrati on [id number] 10/08/2017 Document 14:45:00 Registrati on [id number] 01/21/2016 Document 10:57:42 Registrati on [id number] 01/21/2016 Document 10:57:22 Registrati on
[2017-10-13] MEDS ORDERED: CITRIC ACID/SODIUM CITRATE 30ml PO ONE (05:53)
[2017-10-13] MEDS ORDERED: FAMOTIDINE PB 20 MG/50 ML BAG IV ONE (05:53)
[2017-10-13] MEDS ORDERED: CEFAZOLIN PREMIX (MC ONLY) 2 GM/50 ML BAG IV ONE (05:53)
[2017-10-13] MEDS: LR 1,000 ML IV SCH ×2 (06:08→06:43)
[2017-10-13 06:16] VITALS: BMI 25.2
[2017-10-13] MEDS ORDERED: MORPHINE SULFATE PF 5mg/10ml INJ (Duramorph) ONE (07:05)
[2017-10-13] MEDS ORDERED: FentaNYL 100 MCG/2 ML INJECTION ONE (07:06)
[2017-10-13] MEDS ORDERED: SALINE FLUSH 10ml SYRINGE ONE (07:06)
[2017-10-13] MEDS ORDERED: PHENYLEPHRINE INJ 10 MG/ML VIAL IV ONE (07:06)
[2017-10-13] MEDS ORDERED: METOCLOPRAMIDE 10mg/2ml INJECTION IVP PRN (08:20)
[2017-10-13] MEDS ORDERED: ONDANSETRON 4 MG/2 ML INJECTION IVP PRN ×2 (08:20→08:42)
[2017-10-13] MEDS ORDERED: NALBUPHINE 10 MG/ML INJECTION IVP PRN (08:20)
[2017-10-13] MEDS ORDERED: NALOXONE 2 MG/2 ML INJECTION PFS IVP PRN (08:20)
--- NOTE | 2017-10-13 08:26 | Anesthesia Preoperative Report ---
Anesthesia Epidural/Spinal Rec - Date and Time Date: 10/13/17 Procedure: Plan: Spinal - Vital Signs Vital Signs: Temperature 97.9 F 10/13/17 06:19 Pulse Rate 100 10/13/17 06:19 Respiratory Rate 18 10/13/17 06:19 Blood Pressure 136/87 10/13/17 06:19 Pulse Oximetry 97 10/13/17 06:19 /Para: P:1 Heart Rate: 118 - Medictaions & Allergies Inpatient Medications: Current Medications Lactated Ringer's (Lactated Ringers) 1,000 mls @ 999 mls/hr IV .Q1H1M [facility] Last Admin: 10/13/17 06:43 Dose: 999 mls/hr Oxytocin (Pitocin Bolus Bag) 30 unit in 500 mls @ 999 mls/hr IV .Q31M [facility] Stop: 10/13/17 09:00 Last Admin: 10/13/17 07:36 Dose: 999 mls/hr Metoclopramide HCl (Reglan) 10 mg IVP Q6H PRN PRN Reason: Nausea &/or vomiting Stop: 10/14/17 08:19 Nalbuphine HCl (Nubain) 5 - 10 mg IVP Q4H PRN PRN Reason: Pain,Severe Itching,or Nausea Stop: 10/14/17 08:19 Naloxone HCl (Narcan) 0.1 mg IVP Q2M PRN Stop: 10/14/17 08:19 Ondansetron HCl (Zofran) 4 mg IVP Q4H PRN PRN Reason: Nausea &/or vomiting Stop: 10/14/17 08:19 Allergies/Adverse Reactions: Allergies Allergy/AdvReac Type Severity Reaction Status Date / Time Sulfa (Sulfonamide Allergy Severe hives Verified 10/13/17 06:16 Antibiotics) - Home Medications Home Medications: Home Medications Medication Instructions Recorded Confirmed Type Docosahexanoic Acid [ Dha] 1 cap PO DAILY #0 cap 09/11/14 10/13/17 History - Medical History Renal/Endocrine: Reports: Thyroid Disease (takes synthroid) Other History: Reports: Now - Surgical History Reproductive Surgery/Treatment: Reports: Section (2015) Anesthesia Reactions: None Hx Family Anesthesia Reaction: No History of Motion Sickness: No - Social History Smoking Status: Never smoker Second Hand Exposure: No Substance Use Type: does not use Alcohol Intake Frequency: does not drink Hx Chewing Tobacco Use: No - Pertinent Findings Lab Data: CBC and BMP 10/13/17 06:08 - Physical Exam Respiratory Exam: lungs clear Cardiovascular Exam: regular rate and rhythm - Airway Assessment Mallampati Score: I TMD: 3 Fingerbreadths Neck Extension: fair Overall Assessment: no airway concerns - ASA ASA Score: 2 - Discussion Discussion: Discussed risks/options/alternatives of anesthesia and questions answered. Patient consents. Nursing pain assessment noted. Anesthesia Discussion: family member Attestation Statement: Prior to the delivery of any anesthetic medication, I examined the patient, developed the plan, obtained the patient's consent and discussed the risk and benefits of the procedure with the patient/guardian.
[2017-10-13] MEDS ORDERED: OXYTOCIN BOLUS BAG 30 UNIT/500 ML ML IV SCH (08:30)
[2017-10-13] MEDS ORDERED: OXYTOCIN DRIP 30 UNIT/500 ML ML IV SCH (08:42)
[2017-10-13] MEDS ORDERED: D5LR 1,000 ML IV SCH (08:42)
[2017-10-13] MEDS ORDERED: DiphenhydrAMINE 25 MG CAPSULE PO PRN (08:42)
[2017-10-13] MEDS ORDERED: RHOPHYLAC - PHARMACY CONSULT MC ONE (08:42)
[2017-10-13] MEDS ORDERED: SALINE FLUSH 10ml SYRINGE IV PRN (08:42)
[2017-10-13] MEDS ORDERED: CALCIUM CARBONATE Chewable 500mg TABLET PO PRN (08:42)
[2017-10-13] MEDS ORDERED: HYDROCORTISONE 2.5% CREAM 30gm RECTALLY PRN (08:42)
[2017-10-13] MEDS ORDERED: ACETAMINOPHEN 500 MG TABLET PO PRN (08:42)
[2017-10-13] MEDS ORDERED: SIMETHICONE 80 MG CHEWABLE TABLET PO PRN (08:42)
[2017-10-13] MEDS: DOCUSATE CALCIUM 240 MG CAPSULE PO SCH (09:55)
[2017-10-13] MEDS: IBUPROFEN 800 MG TABLET PO PRN ×2 (11:10→21:31)
[2017-10-13] MEDS: HYDROCODONE/APAP 5mg/325mg TABLET PO PRN ×2 (12:33→21:31)
[2017-10-13] MEDS: SIMETHICONE 80 MG CHEWABLE TABLET PO SCH ×3 (12:35→21:31)
--- NOTE | 2017-10-13 14:11 | Anesthesia Postoperative Note ---
- Date and Time Date: 10/13/17 Time: 14:11 - Status Patient Participated in Evaluation: Patient Participated in Person Vital Signs: Temperature 98.5 F 10/13/17 12:44 Pulse Rate 59 L 10/13/17 12:44 Respiratory Rate 18 10/13/17 12:44 Blood Pressure 148/86 H 10/13/17 12:44 Pulse Oximetry 100 10/13/17 12:44 Cardiovascular Function: Regular Pulse Mental Status: Alert and Oriented Pain Intensity: 2 Hydration: Taking PO Fluids Complications During Recover: None Apparent - Follow-Up Instructions Instructions: Per Surgeon
--- NOTE | 2017-10-13 14:34 | Labor and Delivery Note ---
DATE: 10/13/2017 PREOPERATIVE DIAGNOSES 1. 32-year-old white female, G2, P1 at 39.0 weeks gestational age. 2. Maternal hypothyroid. 3. Gestational diabetes - diet controlled. 4. Previous x1. POSTOPERATIVE DIAGNOSIS Male infant, Apgars, 2956 g (Kris Sifuentes). PROCEDURE: Repeat low transverse section. EBL: 700 cc. SURGEON: Jackson Chand MD CURTAIN ROLLER ASSEMBLER: John Quintero DO COMPLICATIONS: None. DESCRIPTION OF PROCEDURE After adequate spinal anesthesia, the patient was prepped and draped in the left lateral decubitus position. A Pfannenstiel skin incision was made with a sharp knife and old skin incision was excised in an ellipsoid manner. Incision was carried down the fascia, which was incised transversely with the Rowe scissors. The rectus fascia was bluntly and sharply dissected off the rectus muscle. The rectus muscle was divided, and the peritoneum was isolated, elevated, entered with the Metzenbaum scissors and extended cephalad and caudad. The bladder blade was then inserted. The lower vesicouterine fold of the peritoneum was isolated and incised transversely. The bladder was bluntly dissected off the lower uterine segment. The bladder blade was reinserted. Then using a sharp knife, a transverse incision was made in the lower uterine segment. This was extended with my fingers. Male infant was delivered from the vertex position without difficulty. It was bulb suctioned after delivery of the head and then again after delivery of the body. Cord was doubly clamped and cut and the infant was taken to the isolette where it was received by Aurelia Watson RN (charge nurse). The placenta was expressed manually and was intact. The uterus was then allowed to fall upon the external abdominal wall. The endometrial cavity was cleansed using moist lap sponges. The uterus was closed using 0-Monocryl in a running locking fashion. Hemostasis was confirmed. The posterior cul-de-sac was cleansed of old blood clots and the tubes and ovaries were examined and found to be normal in size, shape and appearance. Our attention was then turned to tubal ligation. The right fallopian tube was isolated and then a mid-isthmic portion of the tube was grasped with the Natalie clamp, elevated and then a knuckle of the tube was ligated using 2-0 chromic. A Delma clamp was passed through the meso of the tube and then the proximal and distal aspects of the knuckle of the tube were ligated using 2-0 silk. The knuckle of the tube was excised and sent to surgical pathology for lumen confirmation. This procedure was then repeated on the left side and hemostasis was confirmed. After hemostasis was again confirmed, the uterus was then carefully returned to the abdominal cavity. The abdomen was then closed in layers. The peritoneum was closed using 2-0 Vicryl in running nonlocking fashion. The fascia was closed using 0-Vicryl in a running nonlocking fashion bilaterally from the lateral aspects medially. Hemostasis was achieved with the subcutaneous tissue and then the skin was closed using wide suman in a serial fashion. Three horizontal mattress 3-0 Monocryl sutures were placed to keep the skin edges everted. The patient tolerated the procedure well and went to the recovery room in stable condition. Pad, sponge and needle counts were correct and urine postop was clear and free flowing. ORIANAD
--- NOTE | 2017-10-13 18:42 | Progress Note ---
OB PP Progress Note Free Text - Date Date: 10/13/17 - Progress Note Progress Note: pod0 doing well vss af no c/o cont care path
[2017-10-14] MEDS: HYDROCODONE/APAP 5mg/325mg TABLET PO PRN ×4 (05:16→22:12)
[2017-10-14] MEDS: IBUPROFEN 800 MG TABLET PO PRN ×2 (05:19→16:07)
[2017-10-14] MEDS ORDERED: LEVOTHYROXINE 50 MCG TABLET PO SCH (06:30)
--- NOTE | 2017-10-14 08:13 | OB/GYN Progress Note ---
OB-PP Progress Note - General POD:: POD1 - Subjective Date: 10/14/17 Lochia: Moderate Pain: controlled Voiding: voiding Nausea or Vomiting Present: No - Objective Vital Signs: Last Vital Signs Temp 98.4 F 10/14/17 05:00 Pulse 78 10/14/17 05:00 Resp 20 10/14/17 05:00 BP 149/93 H 10/14/17 05:00 Pulse Ox 100 10/14/17 05:00 Urine Output: good General: alert and oriented Respiratory: non-labored (Patient up in chair. Did not visualize incision. ) Extremities: non-tender Laboratory: Laboratory Results - last 24 hr 10/13/17 10/13/17 10/13/17 06:12 08:42 14:50 WBC 10.9 RBC 4.36 Hgb 11.8 L Hct 36.1 MCV 82.8 MCH 27.1 MCHC 32.7 RDW Std Deviation 44.0 Plt Count 312 MPV 10.6 Hgb /Adult Ratio Glucometer 71 RhIG Candidate? Is a candidate 10/13/17 14:50 WBC RBC Hgb Hct MCV MCH MCHC RDW Std Deviation Plt Count MPV Hgb /Adult Ratio 0.0015 Glucometer RhIG Candidate? - Assessment Assessment: Repeat C/S - Plan Plan: routine care
--- NOTE | 2017-10-14 08:19 | Pharmacy Consult ---
Pharmacy Consult-Rhophylac - Laboratory Information 10/13/17 10/13/17 10/13/17 06:08 08:42 14:50 Hgb /Adult Ratio 0.0015 Blood Type AB Negative RhIG Candidate? Is a candidate - Consult Information Rh FACTOR CONSULT: Mother Blood Type = AB negative Child Blood Type = A positive Hgb / Adult Ratio = 0.0015 Will give Rho D Immunoglobulin 300mcg IV x 1 dose. Thank you, Cathleen Bernal [facility]
[2017-10-14] MEDS ORDERED: RHO(D) IMMUNE GLOBULIN 300 MCG/2 ML INJECTION IVP ONE (09:00)
[2017-10-14] MEDS: SIMETHICONE 80 MG CHEWABLE TABLET PO SCH ×4 (09:11→22:12)
[2017-10-14] MEDS ORDERED: GUAIFENESIN/DM 5ml ORAL LIQUID PO PRN (10:21)
[2017-10-14] MEDS ORDERED: MENTHOL COUGH DROPS (RICOLA) MM PRN (10:22)
--- NOTE | 2017-10-14 11:29 | Progress Note ---
OB PP Progress Note Free Text - Date Date: 10/14/17 - Progress Note Progress Note: watching bp's no sx meds for cough no c/o q&a
[2017-10-14] MEDS: DOCUSATE CALCIUM 240 MG CAPSULE PO SCH (19:46)
[2017-10-14 21:24] VITALS: O2SAT 100
[2017-10-15] MEDS: IBUPROFEN 800 MG TABLET PO PRN ×2 (01:20→10:41)
[2017-10-15] MEDS: HYDROCODONE/APAP 5mg/325mg TABLET PO PRN ×2 (06:06→10:41)
--- NOTE | 2017-10-15 08:00 | Progress Note ---
OB PP Progress Note Free Text - Date Date: 10/15/17 - Progress Note Progress Note: pod2 doing well plans dc vss af incision c/d/i dc instructions given q&a f/u for staple removal
[2017-10-15] MEDS: SIMETHICONE 80 MG CHEWABLE TABLET PO SCH (08:32)
[2017-10-15] MEDS: DOCUSATE CALCIUM 240 MG CAPSULE PO SCH (08:32)
[2017-10-15 10:48] VITALS: BP 142/93; PULSE 110; RESP 16; TEMP 98.3
== END 2017-10-15 11:00 | disposition home or self-care (01) | DRG 766 ==
LOC: MC 05:47
PROVIDERS: ADMIT Obstetrics & Gynecology; ATTEND Obstetrics & Gynecology